=== PATIENT | female | born 1955 | race Caucasian/White ===

== ENCOUNTER → 2016-07-03 | Outpatient (CLI) | payer OTHER ==
--- NOTE | 2016-07-06 11:20 | MM ---
Reason for exam: screening (asymptomatic). Baseline mammogram. History: Patient is postmenopausal. Family history of breast cancer in grandmother, breast cancer in mother, and breast cancer in maternal grandmother. Physical Findings: Nurse did not find any significant physical abnormalities on exam. MG Screening Mammo w CAD Bilateral CC, MLO, and XCCL view(s) were taken. Prior study comparison: January 06, 2002, right breast special view mammogram. December 26, 2001, right breast diagnostic mammogram. There are scattered fibroglandular densities. Finding: There are typically benign punctate calcifications in the right breast. These results were verbally communicated with the patient and result sheet given to the patient on 07/03/16. ASSESSMENT: Probably benign, BI-RAD 3 RECOMMENDATION: Follow-up diagnostic mammogram of the right breast in 6 months.
== END | disposition home or self-care (01) ==
LOC: RADMAMWWP 09:47
PROVIDERS: ATTEND Family Medicine
DX: Z12.31 Encounter for screening mammogram for malignant neoplasm of breast (principal)

== ENCOUNTER → 2018-09-07 | Outpatient (CLI) | payer OTHER ==
--- NOTE | 2018-09-12 14:03 | MM ---
Reason for exam: screening (asymptomatic). Last mammogram was performed 2 years and 2 months ago. History: Patient is postmenopausal. Family history of breast cancer in grandmother, breast cancer in mother, and breast cancer in maternal grandmother. Physical Findings: A clinical breast exam by your physician is recommended on an annual basis and results should be correlated with mammographic findings. MG 3D Screening Mammo W/Cad Bilateral CC and MLO view(s) were taken. Prior study comparison: July 03, 2016, bilateral MG screening mammo w CAD. The breast tissue is heterogeneously dense. This may lower the sensitivity of mammography. No significant changes when compared with prior studies. ASSESSMENT: Negative, BI-RAD 1 RECOMMENDATION: Routine screening mammogram of both breasts in 1 year.
== END | disposition home or self-care (01) ==
LOC: RADMAMWWP 13:22
PROVIDERS: ATTEND Family Medicine
DX: Z12.31 Encounter for screening mammogram for malignant neoplasm of breast (principal)
CPT/HCPCS: 77063; 77067

== ENCOUNTER → 2021-08-15 | Outpatient (CLI) | payer MEDICARE, OTHER ==
--- NOTE | 2021-08-15 13:03 | CA ---
Transthoracic Echo Report Name: Nay Mesa Age: 66 Gender: F : 1955 Exam Date: 08/15/2021 11:14 Exam Location: [place] [facility] Ht (in): 61 Wt (lb): 140 Ordering Physician: Ann Marie Ramírez MD Attending/Referring Phys: Marsha Cummins [facility] Primer Boxer Petrona Newman RDCS Procedure CPT: Indications: R01.1 Holisic Murmor Cardiac Hx: Hx of murmur Technical Quality: Good Contrast 1: Total Dose (mL): Contrast 2: Total Dose (mL): MEASUREMENTS (Male / Female) Normal Values 2D ECHO LV Diastolic Diameter PLAX 2.7 cm 4.2 - 5.9 / 3.9 - 5.3 cm LV Systolic Diameter PLAX 1.0 cm IVS Diastolic Thickness 1.6 cm 0.6 - 1.0 / 0.6 - 0.9 cm LVPW Diastolic Thickness 1.5 cm 0.6 - 1.0 / 0.6 - 0.9 cm LV Relative Wall Thickness 1.2 RV Internal Dim ED PLAX 2.2 cm LVOT Diameter 1.6 cm LA Volume 32.8 cm??? 18 - 58 / 22 - 52 cm??? M-MODE Aortic Root Diameter MM 2.9 cm LA Systolic Diameter MM 3.0 cm LA Ao Ratio MM 1.0 MV E Point Septal Separation 0.4 cm AV Cusp Separation MM 1.3 cm DOPPLER AV Peak Velocity 224.0 cm/s AV Peak Gradient 20.1 mmHg AV Mean Velocity 167.4 cm/s AV Mean Gradient 12.0 mmHg AV Velocity Time Integral 44.0 cm AI Peak Velocity 240.3 cm/s AI Peak Gradient 23.1 mmHg AI Pressure Half Time 616.1 ms LVOT Peak Velocity 206.4 cm/s LVOT Peak Gradient 17.0 mmHg LVOT Velocity Time Integral 41.0 cm LVOT Stroke Volume 83.4 cm??? LVOT Stroke Volume Index 51.4 ml/m??? AV Area Cont Eq vti 1.9 cm??? AV Area Cont Eq pk 1.9 cm??? MV Peak Velocity 142.1 cm/s MV Peak Gradient 8.1 mmHg MV Mean Velocity 104.5 cm/s MV Mean Gradient 4.8 mmHg MV Velocity Time Integral 31.6 cm MV Area PHT 2.8 cm??? MR Peak Velocity 385.3 cm/s MR Peak Gradient 59.4 mmHg Mitral E Point Velocity 100.4 cm/s Mitral A Point Velocity 131.7 cm/s Mitral E to A Ratio 0.8 MV Deceleration Time 270.8 ms MV E' Velocity 5.3 cm/s Mitral E to MV E' Ratio 18.9 TR Peak Velocity 137.9 cm/s TR Peak Gradient 7.6 mmHg Right Ventricular Systolic Press 12.6 mmHg FINDINGS Left Ventricle Severely increased septal wall thickness. Moderately increased posterior wall thickness. Left ventricular ejection fraction is estimated at 55-60 %. Small left ventricular cavity. Grade 1 diastolic dysfunction. LVOT obstruction with a peak gradient of 25mmHg Right Ventricle The right ventricle is normal in size and function. Right ventricular systolic pressure within normal limits. Right Atrium The right atrium is normal in size. Left Atrium The left atrium is normal in size. Mitral Valve Structurally normal mitral valve without significant stenosis or prolapse. There is mild mitral regurgitation. Aortic Valve Mild aortic stenosis with a peak gradient of 20 mmHg and a mean gradient of 12 mmHg. . There is a trace aortic regurgitation. Diffuse thickening of the aortic valve cusps with reduced excursion. Tricuspid Valve Structurally normal tricuspid valve without significant stenosis. Pulmonary artery systolic pressure is normal. Pulmonic Valve Structurally normal pulmonic valve without significant stenosis. There is no pulmonic regurgitation. Pericardium Normal pericardium without effusion. Aorta Normal aortic root dimension. CONCLUSIONS Normal left ventricular dimension and systolic function LVOT obstruction with a peak gradient of 25 mmHg Mild aortic stenosis Previewed by: Dr. Mitchel Sun MD (Electronically Signed) Final Date: 15 Aug 2021 13:02
== END | disposition home or self-care (01) ==
LOC: RADECHMAIN 11:05
PROVIDERS: ATTEND Family Medicine
DX: I08.0 Rheumatic disorders of both mitral and aortic valves (principal); I42.1 Obstructive hypertrophic cardiomyopathy
CPT/HCPCS: 93306

== ENCOUNTER → 2021-09-01 | Outpatient (CLI) | payer MEDICARE, OTHER ==
--- NOTE | 2021-09-03 09:19 | MM ---
Reason for Exam: Screening (asymptomatic). Last mammogram was performed 3 year(s) and 0 month(s) ago. Patient History: Menarche at age 13. First Full-Term at age 21. Hysterectomy at age 46. Postmenopausal. Maternal grandmother had breast cancer. Maternal grandmother had breast cancer. Mother had breast cancer at or over age 50. Risk Values: Doreen 5 year model risk: 3.2%. NCI Lifetime model risk: 11.7%. Prior Study Comparison: 01/06/2002 Right Special View Mammogram, [facility]. 07/03/2016 Bilateral Screening Mammogram, [facility]. 09/07/2018 Bilateral Screening Mammogram, [facility]. Tissue Density: The breast tissue is heterogeneously dense. This may lower the sensitivity of mammography. Findings: Analyzed By CAD. Occasional scattered benign-appearing round calcification redemonstrated throughout both breasts. There is 8mm oval circumscribed lesion in the middle to posterior depth upper aspect right breast MLO slice 29 is not clearly seen on prior studies, possible lymph node. Overall Assessment: Incomplete: need additional imaging evaluation, BI-RAD 0 Management: Diagnostic Breast Ultrasound of the right breast. Targeted ultrasound right breast now for further workup. Electronically signed and approved by: Joshua Fuentes M.D.
== END | disposition home or self-care (01) ==
LOC: RADMAMWWP 11:47
PROVIDERS: ATTEND Family Medicine
DX: Z12.31 Encounter for screening mammogram for malignant neoplasm of breast (principal); Z78.0 Asymptomatic menopausal state; Z80.3 Family history of malignant neoplasm of breast
CPT/HCPCS: 77063; 77067

== ENCOUNTER → 2021-09-08 | Outpatient (CLI) | payer MEDICARE, OTHER ==
--- NOTE | 2021-09-08 11:05 | USB ---
Reason for Exam: Additional evaluation requested from abnormal screening. Patient History: Menarche at age 13. First Full-Term at age 21. Hysterectomy at age 46. Postmenopausal. Maternal grandmother had breast cancer. Maternal grandmother had breast cancer. Mother had breast cancer at or over age 50. Risk Values: Doreen 5 year model risk: 3.2%. NCI Lifetime model risk: 11.7%. Technique: Method: Targeted. Prior Study Comparison: 07/03/2016 Bilateral Screening Mammogram, [facility]. 09/07/2018 Bilateral Screening Mammogram, [facility]. 09/01/2021 Bilateral MG 3D screening mammo w/cad, [facility]. Findings: There is a 0.5 x 0.4 x 0.5 cm well-circumscribed anechoic area 5 cm from the nipple at the 10:00 position. This appears to correspond to the mammographic finding. Note is made of a benign-appearing lymph node in the right axilla. Overall Assessment: Probably benign, BI-RAD 3 Management: Diagnostic Mammogram of the right breast in 6 months. Diagnostic Breast Ultrasound of the right breast in 6 months. A clinical breast exam by your physician is recommended on an annual basis and results should be correlated with mammographic findings. Patient should continue monthly self breast exam. A negative mammogram or negative ultrasound should not preclude biopsy of suspicious palpable abnormalities. Electronically signed and approved by: Butch Hartman D.O. Radiologis
== END | disposition home or self-care (01) ==
LOC: RADUSWWP 10:14
PROVIDERS: ATTEND Family Medicine
DX: R92.8 Other abnormal and inconclusive findings on diagnostic imaging of breast (principal); Z78.0 Asymptomatic menopausal state; Z80.3 Family history of malignant neoplasm of breast

== ENCOUNTER → 2021-10-02 | Outpatient (CLI) | payer MEDICARE, OTHER ==
--- NOTE | 2021-10-02 09:22 | US ---
EXAMINATION TYPE: US abdomen complete DATE OF EXAM: 10/02/2021 COMPARISON: NONE CLINICAL HISTORY: R10.13 EPIGAS PAIN, R10.12 LUQ PAIN R10.11 RUQ LANNY. Pt states ABD bloating, pain x 2-3 months EXAM MEASUREMENTS: Liver Length: 15.9 cm Gallbladder Wall: 0.3 cm CBD: 0.3 cm Spleen: 6.3 cm Right Kidney: 10.4 x 4.8 x 4.8 cm Left Kidney: 10.0 x 5.2 x 5.6 cm Pancreas: wnl Liver: wnl Gallbladder: wnl Evidence for sonographic Santos's sign: No CBD: wnl Spleen: Difficult to visualize Right Kidney: wnl, lower pole gassed out Left Kidney: wnl Upper IVC: wnl Abd Aorta: wnl, distal portion gassed out Large, complex/cystic mass lower ABD= 21.2 x 11.9 x 18.1 cm ?etiology- possibly ovarian? The liver is homogenous. The intrahepatic portion of the IVC and proximal abdominal aorta are within normal limits. There is no evidence of cholelithiasis. Common bile duct is unremarkable. The visu alized portions of the pancreas are homogenous. Kidneys are symmetric and free of hydronephrosis. N o renal lesions are seen. IMPRESSION: 1. Large complex partially cystic mass which may arise from the ovary. CT of the abdomen and pelvis i s recommended for further evaluation to exclude neoplasm.
== END | disposition home or self-care (01) ==
LOC: RADUSWWP 08:38
PROVIDERS: ATTEND Family Medicine
DX: R19.09 Other intra-abdominal and pelvic swelling, mass and lump (principal)
CPT/HCPCS: 76700

== ENCOUNTER → 2021-10-03 | Outpatient (CLI) | payer MEDICARE, OTHER ==
--- NOTE | 2021-10-03 12:53 | BD ---
EXAMINATION TYPE: Axial Bone Density DATE OF EXAM: 10/03/2021 COMPARISON: NONE CLINICAL HISTORY: 66 years year old Female. ICD-10 CODE: G89.29 CHRONIC PAIN, Z78.0 POST MENOPAUSAL, M54.41 Lumbago w Height: 61 Weight: 138.1 FRAX RISK QUESTIONS: Alcohol (3 or more units per day): yes Family History (Parent hip fracture): no Glucocorticoids (More than 3mos): no (Ex: prednisone, prednisolone, methylprednisolone, dexamethasone, and hydrocortisone). History of Fracture in Adulthood: no Secondary Osteoporosis: 1. Type 1 Diabetes: no 2. Hyperthyroidism: no 3. Menopause before 45: no 4. Malnutrition: no 5. Chronic liver disease: no Rheumatoid Arthritis: no Current Tobacco Use: yes RISK FACTORS HISTORY OF: Surgery to Spine/Hip(right/left)/Wrist (right/left): no Family History of Osteoporosis: no Active: yes Diet low in dairy products/other sources of calcium: yes Postmenopausal woman: yes Lost more than 2 inches in height since high school: no MEDICATIONS: Additional History: EXAM MEASUREMENTS: Bone mineral densitometry was performed using the Uni-Pixel System. Bone mineral density as measured about the Lumbar spine is: ----- L1-L4(G/cm2): 0.935 T Score Values are as follows: ----- L1: -2.2 ----- L2: -2.8 ----- L3: -2.2 ----- L4: -1.3 ----- L1-L4: -2.0 Bone mineral density baseline Bone mineral density about the R hip (g/cm2): 0.752 Bone mineral density about the L hip (g/cm2): 0.755 T Score values are as follows: -----R Neck: -2.1 -----L Neck: -2.0 -----R Total: -1.6 -----L Total: -1.6 Bone mineral density : baseline FRAX%s: The graph provided illustrates a 14.4% chance for a major osteoporotic fx and a 4.5% chance f or the hips probability for fx in 10 years time. IMPRESSION: Osteopenia (T Score between -2.5 and -1). There is slightly increased risk of fracture and the patient may be considered for treatment. Re-Screen 2-5 years. NOTE: T-SCORE=SD OF THE YOUNG ADULT MEAN.
== END | disposition home or self-care (01) ==
LOC: RADBDWWP 11:07
PROVIDERS: ATTEND Family Medicine
DX: M81.0 Age-related osteoporosis without current pathological fracture (principal); Z78.0 Asymptomatic menopausal state
CPT/HCPCS: 77080

== ENCOUNTER → 2021-10-15 | Outpatient (CLI) | payer MEDICARE, OTHER ==
[2021-10-15 19:00] LABS: African American GFR (CKD) >90 (>60 ml/min/1.73 sqM); Blood Urea Nitrogen 10 mg/dL (7-17); Non-African American GFR(CKD) >90 (>60 ml/min/1.73 sqM)
--- NOTE | 2021-10-15 20:55 | CT ---
EXAMINATION TYPE: CT abdomen pelvis w con CT DLP: 624.7 mGycm, Automated exposure control for dose reduction was used. DATE OF EXAM: 10/15/2021 7:55 PM COMPARISON: None CLINICAL INDICATION:Female, 66 years old with history of R19.03; abd swelling x 6 months TECHNIQUE: Axial CT of the abdomen and pelvis. Sagittal and coronal reformats were created on a [employer] workstation. Contrast used:100ml mL of Isovue 300 with IV Contrast, Oral contrast used: with Oral Contrast FINDINGS: LOWER CHEST: Unremarkable ABDOMEN LIVER: Diffusely hypoattenuating parenchyma. GALLBLADDER AND BILE DUCTS: Unremarkable. PANCREAS: Unremarkable. SPLEEN: Unremarkable. ADRENAL GLANDS: Unremarkable. KIDNEYS AND URETERS: No evidence of hydronephrosis or renal calculus. The ureters are unremarkable. PELVIS BLADDER: Unremarkable REPRODUCTIVE: There is a large multiloculated cystic structure emanating from the pelvis and possibly the right ovary. Overall measures 21.9 x 13.4 x 16.2 cm. Multiple septations mostly thinner apprecia sheron. Uterus is not definitively visualized may be surgically absent. ABDOMEN & PELVIS STOMACH AND BOWEL: No evidence of bowel obstruction. Few colonic diverticula are present. Small hiata l hernia present. PERITONEUM: No evidence of pneumoperitoneum or free fluid. VASCULATURE: No evidence of aortic aneurysm. MUSCULOSKELETAL: No acute osseous abnormalities LYMPH NODES: No gross evidence for lymphadenopathy. SOFT TISSUE/ABDOMINAL WALL: Unremarkable IMPRESSION: 1. Large intra-abdominal cystic neoplasm to thought to be arising from the right ovary measuring up to 21.9 cm. Nuclear Pharmacist-Onc consultation is recommended. Differential is broad including benign and malignant etiologies. 2. Hepatic steatosis. 3. Small hiatal hernia. 4. Colonic diverticulosis.
== END | disposition home or self-care (01) ==
LOC: RADCTMAIN 15:54
PROVIDERS: ATTEND Family Medicine
DX: R19.03 Right lower quadrant abdominal swelling, mass and lump (principal); K76.0 Fatty (change of) liver, not elsewhere classified; K44.9 Diaphragmatic hernia without obstruction or gangrene; K57.30 Diverticulosis of large intestine without perforation or abscess without bleeding
CPT/HCPCS: 82565; 84520; 74177; 36415; Q9967

== ENCOUNTER → 2022-03-27 | Outpatient (CLI) | payer MEDICARE, OTHER ==
--- NOTE | 2022-03-27 10:03 | MM ---
Reason for Exam: Follow-up at short interval from prior study. Last screening mammogram was performed 7 month(s) ago. Patient History: Menarche at age 13. First Full-Term at age 21. Left ovary removed at age 66. Right ovary removed at age 66. Hysterectomy at age 46. Postmenopausal. Ovarian cancer, age 66. Previous chemotherapy at age 66. Maternal grandmother had breast cancer under age 50. Maternal grandmother had breast cancer at or over age 50. Mother had breast cancer at or over age 50. Risk Values: Doreen 5 year model risk: 3.2%. NCI Lifetime model risk: 11.7%. Prior Study Comparison: 07/03/2016 Bilateral Screening Mammogram, [facility]. 09/07/2018 Bilateral Screening Mammogram, [facility]. 09/01/2021 Bilateral MG 3D screening mammo w/cad, [facility]. Tissue Density: Right: The breast tissue is heterogeneously dense. This may lower the sensitivity of mammography. Findings: Analyzed By CAD. No new suspicious mass within either breast. Benign round calcifications within both breasts. Decreased size of likely lymph node within the upper right breast on the MLO view measuring 3 mm short axis, previously 4 mm. Overall Assessment: Incomplete: need additional imaging evaluation, BI-RAD 0 Management: Diagnostic Breast Ultrasound of the right breast. A clinical breast exam by your physician is recommended on an annual basis and results should be correlated with mammographic findings. This exam should not preclude additional follow-up of suspicious palpable abnormalities. Results were given to the patient verbally at the time of exam. Electronically signed and approved by: Federico Chavira D.O.
--- NOTE | 2022-03-27 10:22 | USB ---
Reason for Exam: Follow-up at short interval from prior study. Patient History: Menarche at age 13. First Full-Term at age 21. Left ovary removed at age 66. Right ovary removed at age 66. Hysterectomy at age 46. Postmenopausal. Ovarian cancer, age 66. Previous chemotherapy at age 66. Maternal grandmother had breast cancer under age 50. Maternal grandmother had breast cancer at or over age 50. Mother had breast cancer at or over age 50. Risk Values: Doreen 5 year model risk: 3.2%. NCI Lifetime model risk: 11.7%. Technique: Method: Targeted. Prior Study Comparison: 07/03/2016 Bilateral Screening Mammogram, [facility]. 09/07/2018 Bilateral Screening Mammogram, [facility]. 09/01/2021 Bilateral MG 3D screening mammo w/cad, [facility]. Findings: The upper outer quadrant of the right breast, the axilla of the right breast and the retroareolar of the right breast were scanned. Targeted ultrasound of the right breast from 9-11 o'clock was performed. Additional evaluation of the nipple and x-ray tail was performed. Previously seen cystic lesion at 10:00 within the right breast is not visualized on today's exam. No visualized new solid or cystic lesions.Targeted ultrasound of the right breast from 9-11 o'clock was performed. Additional evaluation of the nipple and axillary tail was performed. Previously seen cystic lesion at 10:00 within the right breast is not visualized on today's exam. No visualized new solid or cystic lesions. Overall Assessment: Benign, BI-RAD 2 Management: Screening Mammogram of both breasts in 5 months. A clinical breast exam by your physician is recommended on an annual basis and results should be correlated with mammographic findings. This exam should not preclude additional follow-up of suspicious palpable abnormalities. Results were given to the patient verbally at the time of exam. Electronically signed and approved by: Federico Chavira D.O.
== END | disposition home or self-care (01) ==
LOC: RADMAMWWP 09:26
PROVIDERS: ATTEND Family Medicine
DX: R92.8 Other abnormal and inconclusive findings on diagnostic imaging of breast (principal); Z78.0 Asymptomatic menopausal state; Z80.3 Family history of malignant neoplasm of breast; Z90.721 Acquired absence of ovaries, unilateral
CPT/HCPCS: 77065; 76642; G0279; 77061

== ENCOUNTER → 2022-07-11 | Outpatient (CLI) | payer MEDICARE, OTHER ==
--- NOTE | 2022-07-12 12:55 | PE ---
EXAMINATION TYPE: PET CT fusion skull to thigh DATE OF EXAM: 07/11/2022 CLINICAL INDICATION:Female, 67 years old with history of C56.3; TECHNIQUE: Following the intravenous administration of 13.5 mCi of F-18 FDG, whole body images are performed from the skull base to the midthigh. Images are reviewed on the computer in the coronal, a xial, and sagittal planes. Reconstructed rotating images are created on independent workstation and reviewed on the computer. A non-contrast CT is performed in conjunction with the PET scan. Glucose level 106 mg/dL COMPARISON: CT 10/15/2021, PET/CT None, FINDINGS: Mediastinal SUV mean is 1.4. Hepatic parenchyma SUV mean is 2.0. SKULL BASE AND NECK: No suspicious radiotracer activity. CHEST, MEDIASTINUM, AND HILAR REGION: No suspicious radiotracer activity. ABDOMEN AND PELVIS: Thin peripheral FDG activity near the right hepatic lobe anteriorly max SUV 5.7 corresponding with so ft tissue nodularity on CT imaging. Trace fluid is suspected in this region. Findings best appreciate d on series 3 image 149, soft tissue density within the omentum in the left abdomen Max SUV 1.2 measu ring 9 mm. Additional scattered smaller soft tissue densities are seen throughout the omentum which a re new from prior CT in September 2021. The large cystic neoplasm has been removed. OSSEOUS STRUCTURES: No suspicious radiotracer activity. OTHER CT: Atherosclerosis of the arterial vasculature including the coronary arteries. Scattered pulm onary nodules measuring less than 3 mm. Fat containing umbilical hernia. Scattered colonic diverticul osis. Trace free fluid within the pelvis. Left adrenal nodular thickening. Interval removal of large cystic neoplasm. IMPRESSION: 1. New Suspected omental caking throughout the mesentery with FDG activity within the fat anterior t o the right hepatic lobe with scattered soft tissue nodules on CT imaging throughout the omentum whic h are new from prior. Findings compatible with omental caking/ metastatic disease. 2. Scattered sub-4 mm pulmonary nodules which are below the sensitivity for PET/CT. Consider follow- up chest 3-6 months to confirm stability.
== END | disposition home or self-care (01) ==
LOC: RADPETMAIN 07:22
PROVIDERS: ATTEND Obstetrics & Gynecology
DX: C56.3 Malignant neoplasm of bilateral ovaries (principal); R91.8 Other nonspecific abnormal finding of lung field
CPT/HCPCS: 78815; A9552

== ENCOUNTER → 2022-09-03 | Outpatient (CLI) | payer MEDICARE, OTHER ==
--- NOTE | 2022-09-04 08:36 | CA ---
Transthoracic Echo Report Name: Nay Mesa Age: 67 Gender: F : 1955 Exam Date: 09/03/2022 10:07 Exam Location: [place] [facility] Ht (in): 61 Wt (lb): 135 Ordering Physician: Bernard Tomlinson MD Attending/Referring Phys: Squeezer Operator Joana Castillo RDCS Procedure CPT: Indications: Z01.818 Encounter for other preprocedural exam Cardiac Hx: Technical Quality: Fair Contrast 1: Total Dose (mL): Contrast 2: Total Dose (mL): MEASUREMENTS (Male / Female) Normal Values 2D ECHO LV Diastolic Diameter PLAX 3.0 cm 4.2 - 5.9 / 3.9 - 5.3 cm LV Systolic Diameter PLAX 2.1 cm IVS Diastolic Thickness 1.6 cm 0.6 - 1.0 / 0.6 - 0.9 cm LVPW Diastolic Thickness 1.6 cm 0.6 - 1.0 / 0.6 - 0.9 cm LV Relative Wall Thickness 1.1 RV Internal Dim ED PLAX 2.2 cm LA Volume 53.2 cm??? 18 - 58 / 22 - 52 cm??? M-MODE Aortic Root Diameter MM 3.1 cm LA Systolic Diameter MM 2.6 cm LA Ao Ratio MM 0.9 AV Cusp Separation MM 1.6 cm DOPPLER AV Peak Velocity 200.5 cm/s AV Peak Gradient 16.1 mmHg AV Mean Velocity 137.4 cm/s AV Mean Gradient 8.1 mmHg AV Velocity Time Integral 35.5 cm LVOT Peak Velocity 154.6 cm/s LVOT Peak Gradient 9.6 mmHg LVOT Velocity Time Integral 34.4 cm MV Area PHT 5.1 cm??? Mitral E Point Velocity 79.3 cm/s Mitral A Point Velocity 135.4 cm/s Mitral E to A Ratio 0.6 MV Deceleration Time 147.8 ms MV E' Velocity 4.7 cm/s Mitral E to MV E' Ratio 16.7 TR Peak Velocity 254.1 cm/s TR Peak Gradient 25.8 mmHg Right Ventricular Systolic Press 29.4 mmHg FINDINGS Left Ventricle Moderately increased left ventricular wall thickness. Normal left ventricular systolic function with no obvious regional wall motion abnormalities. Left ventricular cavity size normal. Left ventricular ejection fraction is estimated at 55-60 %. Right Ventricle Normal right ventricular size and function. Right ventricular systolic pressure within normal limits. Right Atrium Normal right atrial size. Left Atrium Mildly increased left atrial volume. Mitral Valve Structurally normal mitral valve. Mitral valve thickened. Mild mitral annular calcification. Mild mitral regurgitation. Aortic Valve Trileaflet aortic valve. Diffuse thickening (sclerosis) of the aortic valve cusps without reduced excursion. No aortic regurgitation. Tricuspid Valve Structurally normal tricuspid valve. Mild tricuspid regurgitation. Pulmonic Valve Structurally normal pulmonic valve. Trace pulmonic regurgitation. Pericardium No pericardial effusion. Echo free space anterior to the right ventricle likely represents a fat pad. Aorta Normal size aortic root and proximal ascending aorta. CONCLUSIONS 1. Normal left ventricle size and systolic function 2. Mild mitral and tricuspid regurgitation 3. Aortic sclerosis with no evidence of stenosis Previewed by: Dr. Pricilla Medel MD (Electronically Signed) Final Date: 04 September 2022 08:35
== END | disposition home or self-care (01) ==
LOC: RADECHMAIN 09:41
PROVIDERS: ATTEND Internal Medicine Hematology & Oncology
DX: Z01.818 Encounter for other preprocedural examination (principal); I08.3 Combined rheumatic disorders of mitral, aortic and tricuspid valves
CPT/HCPCS: 93306

== ENCOUNTER 2022-10-16 07:59 | Day surgery (SDC) | payer MEDICARE, OTHER ==
[2022-10-16 08:44] VITALS: RESP 16; TEMP 98.5
[2022-10-16 09:01] LABS: Mean Platelet Volume 8.1; Platelet Count 584 k/uL (150-450)
[2022-10-16 09:19] LABS: ALT 11 U/L (4-34); AST 16 U/L (14-36); African American GFR (CKD) >90 (>60 ml/min/1.73 sqM); Albumin 3.5 g/dL (3.5-5.0); Alkaline Phosphatase 103 U/L (38-126); Anion Gap 7 mmol/L; Blood Urea Nitrogen 7 mg/dL (7-17); Calcium 9.5 mg/dL (8.4-10.2); Carbon Dioxide 29 mmol/L (22-30); Chloride 101 mmol/L (98-107); Glucose 114 mg/dL (74-99); Non-African American GFR(CKD) >90 (>60 ml/min/1.73 sqM); Potassium 4.1 mmol/L (3.5-5.1); Sodium 137 mmol/L (137-145); Total Bilirubin 0.3 mg/dL (0.2-1.3); Total Protein 6.9 g/dL (6.3-8.2)
[2022-10-16 09:20] LABS: INR 1.1 (<1.2); Prothrombin Time 11.1 sec (9.0-12.0)
[2022-10-16 10:27] VITALS: BP 122/81; PULSE 106
[2022-10-16 10:36] LABS: C Reactive Protein 6.7 mg/dL (<1.0)
--- NOTE | 2022-10-16 10:52 | US ---
EXAMINATION TYPE: US paracentesis abd w/image DATE OF EXAM: 10/16/2022 CLINICAL HISTORY: 67 year-old female R18.8, ascites, history of ovarian cancer. Abdominal pain and d istention. Referred for first paracentesis. The procedure was discussed with the patient. The risks, complications, benefits, and alternatives we re discussed and any questions were answered. Informed consent was obtained. The patient was placed s upine on the ultrasound table and prepped and draped in the usual sterile fashion. All elements of maximal barrier technique were utilized. Ultrasound was utilized to determine the precise skin entry site along the right lower quadrant. A 6 Turkish safety T[employer]ie ([employer]esis catheter system was utilized to obtain access into the ascites collection. Loc al anesthesia with 1% lidocaine was utilized prior to catheter insertion. Approximately 1.0 liters of clear, straw-colored fluid was removed. The patient was stable throughout the procedure and remained stable upon discharge from Department of Radiology. Catheter was removed, hemostasis obtained, and a bandage placed. IMPRESSION: Successful therapeutic paracentesis under ultrasound guidance. 1 L of ascites fluid removed. The abdo men is rescanned following paracentesis and only trace fluid remains.
[2022-10-17 03:07] LABS: Rheumatoid Factor, Qnt <15 IU/mL (0-15)
[2022-10-23 15:22] LABS: ANA Pattern SPK
== END 2022-10-16 10:40 | disposition home or self-care (01) ==
LOC: RADPROMAIN 07:59
PROVIDERS: ATTEND Internal Medicine Hematology & Oncology
DX: R18.8 Other ascites (principal); R14.0 Abdominal distension (gaseous); Z85.43 Personal history of malignant neoplasm of ovary; Z79.82 Long term (current) use of aspirin; Z90.89 Acquired absence of other organs; Z90.710 Acquired absence of both cervix and uterus; Z79.899 Other long term (current) drug therapy
CPT/HCPCS: 80053; 85652; 84443; 85049; 85610; 86140; 86431; 83721; 82306; 86038; 86039; 83036; 49083; J1642

== ENCOUNTER 2022-11-27 12:54 | Day surgery (SDC) | payer MEDICARE, OTHER ==
[2022-11-27 13:39] VITALS: TEMP 98.1
[2022-11-27 13:44] LABS: Mean Platelet Volume 7.7; Platelet Count 664 k/uL (150-450)
[2022-11-27 13:53] LABS: Prothrombin Time 10.2 sec (9.0-12.0)
[2022-11-27 13:58] LABS: African American GFR (CKD) >90 (>60 ml/min/1.73 sqM); Non-African American GFR(CKD) >90 (>60 ml/min/1.73 sqM)
[2022-11-27 15:13] VITALS: RESP 16
[2022-11-27 15:58] VITALS: BP 121/79; PULSE 115
--- NOTE | 2022-12-02 12:11 | US ---
EXAMINATION TYPE: US paracentesis abd w/image DATE OF EXAM: 11/27/2022 2:44 PM CLINICAL INDICATION:Female, 67 years old with history of R18.8; COMPARISON: 10/08/2022 ATTENDING: Dr. Bear Castanon PROCEDURE: Informed consent was obtained. The risks of the procedure were extensively explained incl uding risk of damage to surrounding bowel with perforation and need for additional procedures. Proced ure was performed in the ultrasound procedure suite. Ultrasound imaging of the abdomen demonstrate as citic fluid. An appropriate access site was localized to the right lower abdomen. Timeout was taken p er protocol. The skin was prepped and draped in the usual sterile fashion and then locally anesthetiz ed with 1% lidocaine. The peritoneal cavity was then accessed via a 5-[place] one-step needle/cathete r. Approximately 3950 cc of clear straw-colored fluid was obtained. Postprocedural imaging of the a bdomen demonstrate a minimal amount of abdominal fluid. Patient tolerated procedure well without immediate complication. Hemostasis at the procedural site w as obtained with a sterile bandage placed. The patient was monitored in the holding area following th e procedure and was subsequently discharged in stable condition. IMPRESSION: Ultrasound guided paracentesis, with approximately 3950 cc of clear straw-colored fluid drained. No i mmediate complications were evident.
== END 2022-11-27 15:45 | disposition home or self-care (01) ==
LOC: RADPROMAIN 12:54
PROVIDERS: ATTEND Internal Medicine Hematology & Oncology
DX: R18.8 Other ascites (principal)
CPT/HCPCS: 82565; 85049; 85610; 49083; J1642

== ENCOUNTER 2022-12-20 00:02 | Inpatient (IN) | payer MEDICARE, OTHER ==
[2022-12-20 01:06] LABS: Anisocytosis Slight; Basophils % (A) 0 %; Eosinophils % (A) 0 %; HCT 32.2 % (34.0-46.0); HGB 10.1 gm/dL (11.4-16.0); Hypochromasia Marked; Lymphocytes # (A) 2.4 k/uL (1.0-4.8); Lymphocytes % (A) 19 %; MCHC 31.3 g/dL (31.0-37.0); Mean Platelet Volume 8.4; Monocytes # (A) 0.9 k/uL (0-1.0); Monocytes % (A) 7 %; Neutrophils # (A) 9.5 k/uL (1.3-7.7); Neutrophils % (A) 73 %; Platelet Count 574 k/uL (150-450); RBC 3.87 m/uL (3.80-5.40); RDW 17.4 % (11.5-15.5); WBC 13.1 k/uL (3.8-10.6)
[2022-12-20 01:07] LABS: MCV 83.1 fL (80.0-100.0)
[2022-12-20] MEDS ORDERED: MORPHINE SULFATE 4 MG/ML SYRINGE IV STA (01:12)
[2022-12-20] MEDS ORDERED: ONDANSETRON 4 MG/2 ML VIAL IVP STA ×2 (01:12→04:35)
[2022-12-20] MEDS ORDERED: SODIUM CHLORIDE 0.9% 500 ML 500 ML IV STA (01:12)
[2022-12-20 01:17] LABS: Partial Thromboplastin Time 23.3 sec (22.0-30.0); Prothrombin Time 10.6 sec (9.0-12.0)
[2022-12-20 01:22] LABS: ALT 14 U/L (4-34); AST 26 U/L (14-36); African American GFR (CKD) 75 (>60 ml/min/1.73 sqM); Albumin 3.2 g/dL (3.5-5.0); Alkaline Phosphatase 104 U/L (38-126); Anion Gap 17 mmol/L; Blood Urea Nitrogen 33 mg/dL (7-17); Calcium 9.8 mg/dL (8.4-10.2); Carbon Dioxide 29 mmol/L (22-30); Chloride 82 mmol/L (98-107); Glucose 106 mg/dL (74-99); Non-African American GFR(CKD) 65 (>60 ml/min/1.73 sqM); Sodium 128 mmol/L (137-145); Total Bilirubin 0.8 mg/dL (0.2-1.3); Total Protein 6.6 g/dL (6.3-8.2)
--- NOTE | 2022-12-20 02:22 | ED ---
Altered Mental Status HPI - General Chief Complaint: Altered Mental Status Stated Complaint: WEAKNESS Time Seen by Provider: 12/20/22 00:15 Source: EMS Mode of arrival: EMS Limitations: altered mental status - History of Present Illness Initial Comments: This patient is 67-year-old woman with history of metastatic ovarian cancer who is here to have evaluation for changes in her mental status. The patient reportedly was receiving chemotherapy but states that it was "too strong for her, so it was stopped" over the past couple of weeks she has been taking less and less oral intake. She has not really had much in way of fluids for the past few days. Tonight she was becoming somewhat confused and disoriented so he brought her to have evaluation here. In addition, the patient has not been taking her home analgesics. MD Complaint: altered mental status -: days(s) Severity: moderate Consistency of Symptoms: getting worse Context: cancer Associated Symptoms: nausea/vomiting - Related Data Home Medications Medication Instructions Recorded Confirmed HYDROcodone/APAP 10-325MG [[place] 1 tab PO BID 12/20/22 12/20/22 10-325] HYDROcodone/APAP 10-325MG [[place] 1 tab PO BID PRN 12/20/22 12/20/22 10-325] Allergies Allergy/AdvReac Type Severity Reaction Status Date / Time No Known Allergies Allergy Verified 12/20/22 13:09 Review of Systems ROS Statement: Those systems with pertinent positive or pertinent negative responses have been documented in the HPI. ROS Other: All systems not noted in ROS Statement are negative. Constitutional: Reports: weakness. Denies: fever, chills Eyes: Denies: vision change ENT: Denies: congestion Cardiovascular: Denies: chest pain, palpitations, edema, syncope Gastrointestinal: Reports: nausea, vomiting. Denies: abdominal pain, diarrhea, constipation, hematemesis, melena, hematochezia Genitourinary: Denies: dysuria, hematuria Musculoskeletal: Denies: back pain Skin: Denies: rash Neurological: Reports: confusion. Denies: headache, weakness, numbness Past Medical History Past Medical History: Cancer, Osteoarthritis (OA) Additional Past Medical History / Comment(s): OVARIAN CANCER.HEART MURMUR. History of Any Multi-Drug Resistant Organisms: None Reported Past Surgical History: Adenoidectomy, Section, Hernia Repair, Tonsillectomy Additional Past Surgical History / Comment(s): CARPAL TUNNEL RIGHT HAND. PARTIAL HYSTERECTOMY WITH EXPLORATORY LAP 27 years ago. oviarian mass removal nov 2021- postive for CA. port placement Past Anesthesia/Blood Transfusion Reactions: No Reported Reaction Past Psychological History: No Psychological Hx Reported Smoking Status: Current every day smoker Past Alcohol Use History: None Reported Past Drug Use History: None Reported - Past Family History Mother Family Medical History: Cancer Additional Family Medical History / Comment(s): breast General Exam Limitations: altered mental status General appearance: alert, in no apparent distress Head exam: Present: atraumatic, normocephalic Eye exam: Present: normal appearance, PERRL, EOMI. Absent: scleral icterus, conjunctival injection ENT exam: Present: mucous membranes dry Neck exam: Present: normal inspection, full ROM. Absent: tenderness, meningismus Respiratory exam: Present: respiratory distress (Mild tachypnea), rhonchi. Ab sent: wheezes, rales, stridor Cardiovascular Exam: Present: normal rhythm, tachycardia, normal heart sounds. Absent: systolic murmur, diastolic murmur, rubs, gallop GI/Abdominal exam: Present: distended. Absent: tenderness, guarding, rebound, rigid, mass, pulsatile mass, hernia Extremities exam: Present: normal inspection, normal capillary refill. Absent: pedal edema, calf tenderness Back exam: Present: normal inspection. Absent: CVA tenderness (R), CVA tenderness (L) Neurological exam: Present: alert, CN II-XII intact. Absent: motor sensory deficit Skin exam: Present: warm, dry, intact, normal color. Absent: rash Course Vital Signs 12/20/22 12/20/22 12/20/22 00:06 02:09 06:00 Temperature 97.8 F Pulse Rate 122 H 116 H 112 H Pulse Rate [ It Audit Manager ] Pulse Rate [ Pulse Oximetery ] Respiratory 26 H 20 19 Rate Blood Pressure 96/73 107/59 98/78 Blood Pressure [Left Arm Supine] Blood Pressure [Right Arm] O2 Sat by Pulse 99 99 99 Oximetry 12/20/22 12/20/22 12/20/22 07:25 08:01 12:00 Temperature 97.9 F Pulse Rate 112 H 112 H Pulse Rate [ 107 H It Audit Manager ] Pulse Rate [ Pulse Oximetery ] Respiratory 17 17 18 Rate Blood Pressure 133/80 102/65 Blood Pressure [Left Arm Supine] Blood Pressure 103/79 [Right Arm] O2 Sat by Pulse 95 96 93 L Oximetry 12/20/22 12/20/22 12/20/22 16:00 20:00 21:30 Temperature 98.5 F Pulse Rate Pulse Rate [ 91 106 H 106 H It Audit Manager ] Pulse Rate [ Pulse Oximetery ] Respiratory 18 16 16 Rate Blood Pressure Blood Pressure 118/81 [Left Arm Supine] Blood Pressure 109/72 [Right Arm] O2 Sat by Pulse 95 98 Oximetry 12/21/22 12/21/22 12/21/22 01:25 02:00 03:59 Temperature Pulse Rate Pulse Rate [ 107 H 107 H It Audit Manager ] Pulse Rate [ Pulse Oximetery ] Respiratory 14 14 Rate Blood Pressure Blood Pressure 117/80 [Left Arm Supine] Blood Pressure [Right Arm] O2 Sat by Pulse 97 97 Oximetry 12/21/22 12/21/22 12/21/22 06:00 08:00 16:00 Temperature 98.4 F 98.6 F 98.3 F Pulse Rate Pulse Rate [ 106 H 104 H 114 H It Audit Manager ] Pulse Rate [ Pulse Oximetery ] Respiratory 16 18 16 Rate Blood Pressure Blood Pressure 114/79 102/76 [Left Arm Supine] Blood Pressure 116/75 [Right Arm] O2 Sat by Pulse 97 97 97 Oximetry 12/21/22 17:43 Temperature 97.5 F L Pulse Rate Pulse Rate [ It Audit Manager ] Pulse Rate [ 90 Pulse Oximetery ] Respiratory 16 Rate Blood Pressure Blood Pressure 111/76 [Left Arm Supine] Blood Pressure [Right Arm] O2 Sat by Pulse 99 Oximetry Procedures - Sepsis Sepsis Focused Exam #1 Sepsis Focused Exam Complete: Yes Vital Signs & RN Notes Reviewed: Yes Capillary Refill: < 2 Seconds: Fingers Peripheral Pulses: Normal: Radial (L) Skin Color: Normal for Patient Respiratory Exam: normal lung sounds Cardiovascular Exam: normal rhythm, tachycardia, normal heart sounds Medical Decision Making - Medical Decision Making Patient is 67-year-old woman with altered mental status, which has developed after she had days of poor oral intake. On the exam, there is dehydration. There is scattered rhonchi on the lung exam but no areas of definite consolidation. Patient's abdominal exam suggestive of reaccumulation of ascites that previously been drained. I light of these patient be admitted to rule out pneumonia. Hydration is started. Will have consultation with Dr. Tomlinson to decide whether her ascites needs to be drained again. The patient had chest x-ray which I interpreted as showing possible small left lower infiltrate. After reviewing the x-ray, patient meets sepsis criteria, at a approximately 3:30 AM, antibiotics, fluids ordered. Was pt. sent in by a medical professional or institution (LIZET Mensah, HAND FRAME SURGICAL ELASTIC KNITTER, urgent care, hospital, or longterm...) When possible be specific @ -[No] Did you speak to anyone other than the patient for history (EMS, parent, family, police, friend...)? What history was obtained from this source @ -[Patient's did get most of the history Did you review nursing and triage notes (agree or disagree)? Why? @ -[I reviewed and agree with nursing and triage notes] Were old charts reviewed (outside hosp., previous admission, EMS record, old EKG, old radiological studies, urgent care reports/EKG's, longterm records)? Report findings @ -[No old charts were reviewed] Differential Diagnosis (chest pain, altered mental status, abdominal pain women, abdominal pain men, vaginal bleeding, weakness, fever, dyspnea, syncope, headache, dizziness, GI bleed, back pain, seizure, CVA, palpatations, mental health, musculoskeletal)? Differential Altered Mental Status: Hypoglycemia, DKA, hypercapnia, ETOH, overdose, CO poisoning, trauma, myxedema coma, HTN encephalopathy, infection, encephalitis, psychosis, intercranial hemorrhage, hepatic encephalopathy, meningitis, CVA, this is not meant to be an all-inclusive list EKG interpreted by me (3pts min.). @ -[ X-rays interpreted by me (1pt min.). @ -[I interpreted as above CT interpreted by me (1pt min.). @ -[None done] U/S interpreted by me (1pt. min.). @ -[None done] What testing was considered but not performed or refused? (CT, X-rays, U/S, l abs)? Why? @ -[None] What meds were considered but not given or refused? Why? @ -[None] Did you discuss the management of the patient with other professionals (professionals i.e. LIZET Mensah, HAND FRAME SURGICAL ELASTIC KNITTER, lab, RT, psych nurse, social and political studies professor, coding compliance auditor, teacher, police liaison officer, piano case and bench assembler)? Give summary @ -[Case is discussed with the admitting physician and treatment recommendations are incorporated Was smoking cessation discussed for >3mins.? @ -[No] Was critical care preformed (if so, how long)? @ -[No] Were there social determinants of health that impacted care today? How? (Homelessness, low income, unemployed, alcoholism, drug addiction, transportation, low edu. Level, literacy, decrease access to med. care, correction, rehab)? @ -[No] Was there de-escalation of care discussed even if they declined (Discuss DNR or withdrawal of care, Hospice)? DNR status @ -[No] What co-morbidities impacted this encounter? (DM, HTN, Smoking, COPD, CAD, C ancer, CVA, ARF, Chemo, Hep., AIDS, mental health diagnosis, sleep apnea, morbid obesity)? @ -[None] Was patient admitted / discharged? Hospital course, mention meds given and route, prescriptions, significant lab abnormalities, going to OR and other pertinent info. @ -[This patient is a 67-year-old woman with metastatic cancer. The patient brought in for altered mental status and had reportedly not been taking much oral intake. During workup, I interpreted her chest x-ray showing possible pneumonia and patient then met the sepsis criteria. See above. Patient admitted to have further evaluation and treatment including oncology con sultation. At admission no evidence of bacterial peritonitis. Undiagnosed new problem with uncertain prognosis? @ -[No] Drug Therapy requiring intensive monitoring for toxicity (Heparin, Nitro, Insulin, Cardizem)? @ -[No] Were any procedures done? @ -[No] Diagnosis/symptom? @ -[Acute altered mental status Acute on chronic abdominal ascites Possible left lower lobe pneumonia Acute hypotension and tachycardia Possible sepsis hyponatremia Elevated troponin I Acute, or Chronic, or Acute on Chronic? @ -[default] Uncomplicated (without systemic symptoms) or Complicated (systemic symptoms)? @ -[Complicate by mouth status change Side effects of treatment? @ -[No] Exacerbation, Progression, or Severe Exacerbation? @ -[No] Poses a threat to life or bodily function? How? (Chest pain, [place], SD, pneumonia, PE, COPD, DKA, ARF, appy, cholecystitis, CVA, Diverticulitis, Homicidal, Suicidal, threat to staff... and all critical care pts) @ -[Yes, worsening dehydration or sepsis may lead to further hypotension, oriented failure, - Lab Data Result diagrams: 12/25/22 06:01 12/25/22 06:01 Lab Results 12/20/22 12/20/22 12/20/22 Range/Units 00:11 00:11 00:11 WBC 13.1 H (3.8-10.6) k/uL RBC 3.87 (3.80-5.40) m/uL Hgb 10.1 L (11.4-16.0) gm/dL Hct 32.2 L (34.0-46.0) % MCV 83.1 D (80.0-100.0) fL MCH 26.0 (25.0-35.0) pg MCHC 31.3 (31.0-37.0) g/dL RDW 17.4 H (11.5-15.5) % Plt Count 574 H (150-450) k/uL MPV 8.4 Neutrophils % 73 % Lymphocytes % 19 % Monocytes % 7 % Eosinophils % 0 % Basophils % 0 % Neutrophils # 9.5 H (1.3-7.7) k/uL Lymphocytes # 2.4 (1.0-4.8) k/uL Monocytes # 0.9 (0-1.0) k/uL Eosinophils # 0.0 (0-0.7) k/uL Basophils # 0.0 (0-0.2) k/uL Hypochromasia Marked Anisocytosis Slight PT 10.6 (9.0-12.0) sec INR 1.0 (<1.2) APTT 23.3 (22.0-30.0) sec Sodium 128 L (137-145) mmol/L Potassium 3.5 (3.5-5.1) mmol/L Chloride 82 L (98-107) mmol/L Carbon Dioxide 29 (22-30) mmol/L Anion Gap 17 mmol/L BUN 33 H (7-17) mg/dL Creatinine 0.93 (0.52-1.04) mg/dL Est GFR (CKD-EPI)AfAm 75 (>60 ml/min/1.73 sqM) Est GFR (CKD-EPI)NonAf 65 (>60 ml/min/1.73 sqM) Glucose 106 H (74-99) mg/dL Lactic Ac Sepsis Rflx Plasma Lactic Acid Avelino (0.7-2.0) mmol/L Calcium 9.8 (8.4-10.2) mg/dL Total Bilirubin 0.8 (0.2-1.3) mg/dL AST 26 (14-36) U/L ALT 14 (4-34) U/L Alkaline Phosphatase 104 (38-126) U/L Troponin I (0.000-0.034) ng/mL Total Protein 6.6 (6.3-8.2) g/dL Albumin 3.2 L (3.5-5.0) g/dL 12/20/22 12/20/22 12/20/22 Range/Units 00:11 00:11 02:54 WBC (3.8-10.6) k/uL RBC (3.80-5.40) m/uL Hgb (11.4-16.0) gm/dL Hct (34.0-46.0) % MCV (80.0-100.0) fL MCH (25.0-35.0) pg MCHC (31.0-37.0) g/dL RDW (11.5-15.5) % Plt Count (150-450) k/uL MPV Neutrophils % % Lymphocytes % % Monocytes % % Eosinophils % % Basophils % % Neutrophils # (1.3-7.7) k/uL Lymphocytes # (1.0-4.8) k/uL Monocytes # (0-1.0) k/uL Eosinophils # (0-0.7) k/uL Basophils # (0-0.2) k/uL Hypochromasia Anisocytosis PT (9.0-12.0) sec INR (<1.2) APTT (22.0-30.0) sec Sodium (137-145) mmol/L Potassium (3.5-5.1) mmol/L Chloride (98-107) mmol/L Carbon Dioxide (22-30) mmol/L Anion Gap mmol/L BUN (7-17) mg/dL Creatinine (0.52-1.04) mg/dL Est GFR (CKD-EPI)AfAm (>60 ml/min/1.73 sqM) Est GFR (CKD-EPI)NonAf (>60 ml/min/1.73 sqM) Glucose (74-99) mg/dL Lactic Ac Sepsis Rflx Y Plasma Lactic Acid Avelino 2.2 H* (0.7-2.0) mmol/L Calcium (8.4-10.2) mg/dL Total Bilirubin (0.2-1.3) mg/dL AST (14-36) U/L ALT (4-34) U/L Alkaline Phosphatase (38-126) U/L Troponin I 0.050 H* (0.000-0.034) ng/mL Total Protein (6.3-8.2) g/dL Albumin (3.5-5.0) g/dL Disposition Clinical Impression: Dehydration, Hyponatremia, Altered mental status, Ascites Narrative: Possible pneumonia Disposition: ADMITTED IP TO THIS HOSP Condition: Poor Is patient prescribed a controlled substance at d/c from ED?: No
[2022-12-20 02:54] LABS: Potassium 3.5 mmol/L (3.5-5.1)
--- NOTE | 2022-12-20 03:26 | XR ---
EXAM: XR Chest, 2 Views CLINICAL HISTORY: ITS.REASON XR Reason: altered mental status TECHNIQUE: Frontal and lateral views of the chest. COMPARISON: No relevant prior studies available. FINDINGS: Lungs: Small linear opacity left lower lobe. Pleural space: No effusion. Heart: No cardiomegaly. Bones/joints: No acute findings. IMPRESSION: Small linear opacity left lower lobe.
[2022-12-20] MEDS ORDERED: SODIUM CHLORIDE 0.9% 600 ML IV ONE (03:57)
[2022-12-20] MEDS ORDERED: SODIUM CHLORIDE 0.9% 1,000 ML IV STA (03:57)
[2022-12-20] MEDS ORDERED: PNEUMONIA PROTOCOL UTILIZED 1 EACH MISC PO PRN (03:59)
[2022-12-20] MEDS ORDERED: IPRATROPIUM-ALBUTEROL 3 ML NEB INHALATION PRN (11:01)
[2022-12-20] MEDS ORDERED: MORPHINE SULFATE 4 MG/ML SYRINGE IVP PRN (11:40)
--- NOTE | 2022-12-20 12:35 | P.CONS ---
History of Present Illness - Reason for Consult Consult date: 12/20/22 Ovarian Ca , ascites, weakness - History of Present Illness The patient is a 67 -year-old white female, well known to our service. She follows with Dr. Tomlinson in the outpatient setting. The patient was diagnosed with ovarian cancer in 10/10. She was treated with surgery and chemotherapy. She was found to have recurrence on PET scan in 07/12, and was placed back on chemotherapy. The patient had been having increasing side effects from her regimen due to which chemo was stopped about 3-4 weeks prior to this admission. However she has continued to have generalized weakness, and poor appetite. She had paracentesis for her recurrent ascites on 12/02/22. She has developed progressive distention of the abdomen since then. Oral intake has been quite poor and has progressively declined. According to her family member who was present at the bedside and provided a significant amount of the history, the patient was starting to act confused, and slower and responses and comprehension, over the past 1-2 days, due to which she was brought into the emergency room. The patient states that she has been constipated. She has been passing gas, but infrequently. Over the past 1-2 weeks, she has been frequently nauseated with intermittent vomiting, which according to her family occurs every time she tries to eat Review of Systems Constitutional: Reports fatigue, Reports poor appetite, Reports weakness, Reports weight loss Eyes: denies blurred vision, denies pain Ears: deny: decreased hearing, ear discharge, earache, tinnitus Ears, nose, mouth and throat: Denies headache, Denies sore throat Cardiovascular: Reports decreased exercise tolerance Respiratory: Denies cough Gastrointestinal: Reports belching, Reports bloating, Reports constipation, Reports nausea, Reports vomiting Genitourinary: Denies dysuria, Denies hematuria Menstruation: Reports postmenopausal Musculoskeletal: Reports muscle weakness Integumentary: Denies pruritus, Denies rash Neurological: Reports change in mentation, Reports confusion, Reports weakness Psychiatric: Reports confusion Endocrine: Reports fatigue, Reports weight change Hematologic/Lymphatic: Reports as per HPI Past Medical History Past Medical History: Cancer, Osteoarthritis (OA) Additional Past Medical History / Comment(s): OVARIAN CANCER.HEART MURMUR. History of Any Multi-Drug Resistant Organisms: None Reported Past Surgical History: Adenoidectomy, Section, Hernia Repair, Tonsillectomy Additional Past Surgical History / Comment(s): CARPAL TUNNEL RIGHT HAND. PARTIAL HYSTERECTOMY WITH EXPLORATORY LAP 27 years ago. oviarian mass removal nov 2021- postive for CA. port placement Past Anesthesia/Blood Transfusion Reactions: No Reported Reaction Past Psychological History: No Psychological Hx Reported Smoking Status: Current every day smoker Past Alcohol Use History: None Reported Past Drug Use History: None Reported - Past Family History Mother Family Medical History: Cancer Additional Family Medical History / Comment(s): breast Medications and Allergies Home Medications Medication Instructions Recorded Confirmed Type Ondansetron [Zofran] 4 mg PO Q6H PRN 09/25/22 11/27/22 History Prochlorperazine [Compazine] 10 mg PO Q6H 10/14/22 11/27/22 History Simethicone [Gas-X] 125 mg PO DAILY 10/14/22 11/27/22 History HYDROcodone/APAP 7.5-325MG [[place] 5 - 325 mg PO QID PRN 11/27/22 11/27/22 History 7.5-325] HYDROcodone/APAP 7.5-325MG [[place] 7.5 - 325 mg PO QID PRN 11/27/22 11/27/22 History 7.5-325] Allergies Allergy/AdvReac Type Severity Reaction Status Date / Time No Known Allergies Allergy Verified 11/27/22 16:00 Physical Exam Vitals: Vital Signs Temp Pulse Resp BP Pulse Ox 12/20/22 08:01 97.9 F 112 H 17 102/65 96 12/20/22 07:25 112 H 17 133/80 95 12/20/22 06:00 112 H 19 98/78 99 12/20/22 02:09 116 H 20 107/59 99 12/20/22 00:06 97.8 F 122 H 26 H 96/73 99 Intake and Output 12/19/22 12/20/22 12/20/22 22:59 06:59 14:59 Other: Weight 72.575 kg - Constitutional General appearance: no acute distress - EENT Eyes: EOMI, PERRLA ENT: hearing grossly normal, normal oropharynx - Neck Neck: no lymphadenopathy Thyroid: bilateral: normal size - Respiratory Respiratory: bilateral: CTA - Cardiovascular Rhythm: regular Heart sounds: normal: S1, S2 - Gastrointestinal Free fluid positive by exam General gastrointestinal: decreased bowel sounds, distended - Integumentary Integumentary: normal - Neurologic Neurologic: CNII-XII intact - Musculoskeletal Musculoskeletal: generalized weakness, strength equal bilaterally - Psychiatric Comprehension, affect and responses appear to be slow, but are appropriate Psychiatric: A&O x's 3 Results CBC & Chem 7: 12/20/22 00:11 12/20/22 00:11 Labs: Abnormal Lab Results - Last 24 Hours (Table) 12/20/22 12/20/22 12/20/22 Range/Units 00:11 00:11 00:11 WBC 13.1 H (3.8-10.6) k/uL Hgb 10.1 L (11.4-16.0) gm/dL Hct 32.2 L (34.0-46.0) % RDW 17.4 H (11.5-15.5) % Plt Count 574 H (150-450) k/uL Neutrophils # 9.5 H (1.3-7.7) k/uL Sodium 128 L (137-145) mmol/L Chloride 82 L (98-107) mmol/L BUN 33 H (7-17) mg/dL Glucose 106 H (74-99) mg/dL Plasma Lactic Acid Avelino (0.7-2.0) mmol/L Troponin I 0.050 H* (0.000-0.034) ng/mL Albumin 3.2 L (3.5-5.0) g/dL 12/20/22 Range/Units 00:11 WBC (3.8-10.6) k/uL Hgb (11.4-16.0) gm/dL Hct (34.0-46.0) % RDW (11.5-15.5) % Plt Count (150-450) k/uL Neutrophils # (1.3-7.7) k/uL Sodium (137-145) mmol/L Chloride (98-107) mmol/L BUN (7-17) mg/dL Glucose (74-99) mg/dL Plasma Lactic Acid Avelino 2.2 H* (0.7-2.0) mmol/L Troponin I (0.000-0.034) ng/mL Albumin (3.5-5.0) g/dL Assessment and Plan (1) Altered mental status Narrative/Plan: The patient has been having multiple progressive symptoms as described in the HPI. She was supposed to follow-up with Dr Tomlinson for the office, but the current Hospital visit was facilitated by the change in mental status over the last 1-2 days. Her family member stated that they were concerned that she was developing a UTI. - The patient is apparently improved since coming to the hospital, but her affect and comprehension were definitely slow. This could be due to dehydration . An underlying infection causing, or adding to the symptoms is also within the differential. - Patient's x-rays possibility of a small pneumonia in the left lower lobe. She has not been able to void, and nursing was therefore asked to place a Workman catheter , and send the urine sample obtained thus for testing - She has been started on antibiotics for possible pneumonia. - Monitor with ongoing hydration and treatment for infection Current Visit: Yes Status: Acute Code(s): R41.82 - ALTERED MENTAL STATUS, UNSPECIFIED SNOMED Code(s): 485230655 (2) Dehydration Narrative/Plan: Intake has been significantly diminished, and has not improved since stopping chemotherapy. Could be due to persistent chemotherapy effect, but is more likely due to recurrent ascites and diminished bowel function. - IV hydration - Paracentesis - Check abdominal x-ray to evaluate for any ileus or obstruction Current Visit: Yes Status: Acute Code(s): E86.0 - DEHYDRATION SNOMED Code(s): 97476119 (3) Ascites Narrative/Plan: Appears to be recurrent by clinical exam. This could definitely be contributing to her symptoms. Ultrasound ordered. Proceed with therapeutic paracentesis as indicated Current Visit: Yes Status: Acute Code(s): R18.8 - OTHER ASCITES SNOMED Code(s): 081283546 Plan: Treatment for ovarian cancer is currently on hold due to progressive side effects from the prior regimen. Follow-up with Dr. Tomlinson after discharge to discuss the next step in treatment
--- NOTE | 2022-12-20 12:51 | XR ---
Abdomen. HISTORY: Nausea and vomiting. COMPARISON: None TECHNIQUE: 3 views the abdomen were obtained including a single upright view in 2 supine views. FINDINGS: Lung bases are clear and there is no free air beneath the diaphragm. There is a paucity of abdominal gas the bowel gas pattern is nonspecific and there is no evidence of obstruction. No suspicious abdominal or pelvic calcifications are seen. IMPRESSION: Nonspecific abdomen without evidence of free air or obstruction.
--- NOTE | 2022-12-20 16:54 | P.HPIM ---
History of Present Illness H&P Date: 12/20/22 Chief Complaint: Altered mental status/weakness 67-year-old woman with history of metastatic ovarian cancer who is here to have evaluation for changes in her mental status. The patient reportedly was receiving chemotherapy but states that it was "too strong for her, so it was stopped" over the past couple of weeks she has been taking less and less oral intake. She has not really had much in way of fluids for the past few days. Tonight she was becoming somewhat confused and disoriented so he brought her to have evaluation here. In addition, the patient has not been taking her home analgesics. Blood work completed in ED reveals a WBC of 13.1, hemoglobin of 10.1 and platelet count of 574, sodium 128, potassium 3.5, BUN/creatinine of 32/0.93, lactic acid level of 2.2 and troponin of 0.050 Chest x-ray reveals possible small left lower lobe pneumonia Review of Systems REVIEW OF SYSTEMS: CONSTITUTIONAL: No fever, no malaise, no fatigue. HEENT: No recent visual problems or hearing problems. Denied any sore throat. CARDIOVASCULAR: No chest pain, orthopnea, PND, no palpitations, no syncope. PULMONARY: No shortness of breath, no cough, no hemoptysis. GASTROINTESTINAL: No diarrhea, no nausea, no vomiting, no abdominal pain. NEUROLOGICAL: No headaches, no weakness, no numbness. HEMATOLOGICAL: Denies any bleeding or petechiae. GENITOURINARY: Denies any burning micturition, frequency, or urgency. MUSCULOSKELETAL/RHEUMATOLOGICAL: Denies any joint pain, swelling, or any muscle pain. ENDOCRINE: Denies any polyuria or polydipsia. The rest of the 14-point review of systems is negative. Past Medical History Past Medical History: Cancer, Osteoarthritis (OA) Additional Past Medical History / Comment(s): OVARIAN CANCER.HEART MURMUR. History of Any Multi-Drug Resistant Organisms: None Reported Past Surgical History: Adenoidectomy, Section, Hernia Repair, Ton sillectomy Additional Past Surgical History / Comment(s): CARPAL TUNNEL RIGHT HAND. PARTIAL HYSTERECTOMY WITH EXPLORATORY LAP 27 years ago. oviarian mass removal nov 2021- postive for CA. port placement Past Anesthesia/Blood Transfusion Reactions: No Reported Reaction Past Psychological History: No Psychological Hx Reported Smoking Status: Current every day smoker Past Alcohol Use History: None Reported Past Drug Use History: None Reported - Past Family History Mother Family Medical History: Cancer Additional Family Medical History / Comment(s): breast Medications and Allergies Home Medications Medication Instructions Recorded Confirmed Type HYDROcodone/APAP 10-325MG [[place] 1 tab PO BID 12/20/22 12/20/22 History 10-325] HYDROcodone/APAP 10-325MG [[place] 1 tab PO BID PRN 12/20/22 12/20/22 History 10-325] Allergies Allergy/AdvReac Type Severity Reaction Status Date / Time No Known Allergies Allergy Verified 12/20/22 13:09 Physical Exam Vitals: Vital Signs Temp Pulse Resp BP Pulse Ox 12/20/22 08:01 97.9 F 112 H 17 102/65 96 12/20/22 07:25 112 H 17 133/80 95 12/20/22 06:00 112 H 19 98/78 99 12/20/22 02:09 116 H 20 107/59 99 12/20/22 00:06 97.8 F 122 H 26 H 96/73 99 Intake and Output 12/19/22 12/20/22 12/20/22 22:59 06:59 14:59 Other: Weight 72.575 kg PHYSICAL EXAMINATION: GENERAL: The patient is alert and oriented x3, not in any acute distress. Well developed, well nourished. HEENT: Pupils are round and equally reacting to light. EOMI. No scleral icterus. No conjunctival pallor. Normocephalic, atraumatic. No pharyngeal erythema. No thyromegaly. CARDIOVASCULAR: S1 and S2 present. No murmurs, rubs, or gallops. PULMONARY: Chest is clear to auscultation, no wheezing or crackles. ABDOMEN: Soft, nontender, nondistended, normoactive bowel sounds. No palpable organomegaly. MUSCULOSKELETAL: No joint swelling or deformity. EXTREMITIES: No cyanosis, clubbing, or pedal edema. NEUROLOGICAL: Gross neurological examination did not reveal any focal deficits. SKIN: No rashes. Results CBC & Chem 7: 12/20/22 00:11 12/20/22 00:11 Labs: Abnormal Lab Results - Last 24 Hours (Table) 12/20/22 12/20/22 12/20/22 Range/Units 00:11 00:11 00:11 WBC 13.1 H (3.8-10.6) k/uL Hgb 10.1 L (11.4-16.0) gm/dL Hct 32.2 L (34.0-46.0) % RDW 17.4 H (11.5-15.5) % Plt Count 574 H (150-450) k/uL Neutrophils # 9.5 H (1.3-7.7) k/uL Sodium 128 L (137-145) mmol/L Chloride 82 L (98-107) mmol/L BUN 33 H (7-17) mg/dL Glucose 106 H (74-99) mg/dL Plasma Lactic Acid Avelino (0.7-2.0) mmol/L Troponin I 0.050 H* (0.000-0.034) ng/mL Albumin 3.2 L (3.5-5.0) g/dL 12/20/22 Range/Units 00:11 WBC (3.8-10.6) k/uL Hgb (11.4-16.0) gm/dL Hct (34.0-46.0) % RDW (11.5-15.5) % Plt Count (150-450) k/uL Neutrophils # (1.3-7.7) k/uL Sodium (137-145) mmol/L Chloride (98-107) mmol/L BUN (7-17) mg/dL Glucose (74-99) mg/dL Plasma Lactic Acid Avelino 2.2 H* (0.7-2.0) mmol/L Troponin I (0.000-0.034) ng/mL Albumin (3.5-5.0) g/dL Thrombosis Risk Factor Assmnt - Choose All That Apply Each Risk Factor Represents 2 Points: Age 61-74 years Thrombosis Risk Factor Assessment Total Risk Factor Score: 2 Thrombosis Risk Factor Assessment Level: Low Risk Assessment and Plan Assessment: 1. Altered mental status; likely metabolic encephalopathy; related to pneumonia, CHF, dehydration 2. Left lower lobe pneumonia; patient has been placed on IV Rocephin and azithromycin; DuoNeb nebulizer treatments; we will monitor CBC, CMP and pro- calcitonin 3. Acute renal injury/dehydration; IV fluid hydration; monitor strict ALFA's, daily weights, renal function and electrolytes; avoid nephrotoxins and hypotension 4. Lactic acidosis; likely related to pneumonia versus dehydration; IV fluid hydration with normal saline at a rate of 100 mL an hour; monitor lactic acid levels 5. Ascites; patient has been evaluated by oncology; recommending abdominal ultrasound and to proceed with therapeutic paracentesis as indicated 6. Ovarian cancer; patient was diagnosed in September 2021 and has been treated with surgery and chemotherapy; patient had a PET scan done in June 2022 which revealed recurrence and patient has been placed back on chemotherapy 7. Intractable nausea and vomiting; symptomatic treatment DVT prophylaxis; SCDs/subcu Lovenox CODE STATUS; full code
[2022-12-20] MEDS: SODIUM CHLORIDE 0.9% 1,000 ML IV SCH (17:52)
[2022-12-20] MEDS ORDERED: SYMBICORT 160-4.5 MCG INHALER INHALATION SCH (20:00)
[2022-12-20 20:05] LABS: Amphetamine Screen,Urine Not Detected (NotDetected); Barbiturate Screen,Urine Not Detected (NotDetected); Benzodiazepines Screen,Urine Not Detected (NotDetected); Cocaine Screen,Urine Not Detected (NotDetected); Methadone Screen, Urine Not Detected (NotDetected); Opiate Screen,Urine Detected (NotDetected); Oxycodone Screen, Urine Not Detected (NotDetected); Phencyclidine Screen,Urine Not Detected (NotDetected); Tricyclic Antidepressant,Urine Not Detected (NotDetected); Urn Cannabinoid Scrn Detected (NotDetected)
[2022-12-20] MEDS: ONDANSETRON 4 MG/2 ML VIAL IVP PRN (21:56)
--- NOTE | 2022-12-20 22:13 | CT ---
EXAMINATION TYPE: CT chest angio for PE CT DLP: 156.80 mGycm, Automated exposure control for dose reduction was used. DATE OF EXAM: 12/20/2022 9:20 PM COMPARISON: Chest radiograph from same day. Previous PET CT 07/11/2022 CLINICAL INDICATION:Female, 67 years old with history of elevated d-dimer, poss PE. hx of ovarian ca TECHNIQUE/CONTRAST: CTA scan of the thorax is performed with IV Contrast, patient injected with 80ml mL of Isovue 370, ID P images are created and reviewed these are created on a separate workstation.. FINDINGS: Pulmonary Artery: There is no evidence for a filling defect within the pulmonary vasculature to sugge st acute pulmonary embolism. The pulmonary artery is of normal size. Lungs/Pleura: Small left pleural effusion. Small left basilar opacity, likely atelectasis adjacent to the effusion. Mild centrilobular emphysema bilaterally. No definite lung mass is seen. Grossly stabl e tiny pulmonary nodules, would be best assessed with outpatient CT follow-up. No pneumothorax. Airway: Large airways are patent. Heart: Heart is upper normal limits for size. Coronary arterial calcifications noted. Vasculature: Ectasia of the ascending aorta up to 3.6 cm. No dissection flap is seen. There are mild atherosclerotic calcifications. Mediastinum: No gross evidence of adenopathy. Musculoskeletal: No acute osseous abnormality seen. [id number]-[id number] degenerative changes of the spin e. Soft Tissues: Esophagus appears mildly to moderately distended with fluid. Lower neck: No significant findings. Right chest Mediport with tip in the cavoatrial junction. Upper Abdomen: Interval development of significant lobulated low-density structure/s in the partially visualized upper abdomen, abutting the liver, spleen, and stomach. IMPRESSION: 1. No evidence of pulmonary embolism. 2. Small left pleural effusion, with adjacent opacity likely atelectasis. 3. Esophagus appears mildly to moderately distended with fluid, this could be due to reflux or dysmo tility. 4. Interval development of significant lobulated low-density structure/s in the partially visualized upper abdomen since 07/11/2022, could be related to ascites and/or metastatic deposits.
--- NOTE | 2022-12-20 22:14 | US ---
EXAMINATION TYPE: US venous doppler duplex LE BI DATE OF EXAM: 12/20/2022 7:18 PM COMPARISON: NONE CLINICAL INDICATION: Female, 67 years old with history of d-dimer, DVT; Elevated D-Dimer SIDE PERFORMED: Bilateral TECHNIQUE: The lower extremity deep venous system is examined utilizing real time linear array sonog rafael with graded compression, doppler sonography and color-flow sonography. VESSELS IMAGED: Common Femoral Vein Deep Femoral Vein Greater Saphenous Vein * Femoral Vein Popliteal Vein Small Saphenous Vein * Proximal Calf Veins (* superficial vessels) Right Leg: Negative for DVT Left Leg: Negative for DVT IMPRESSION: No evidence for DVT within the bilateral lower extremities imaged from the groin to the upper calves.
[2022-12-20] MEDS: HYDROcodone/APAP 7.5-325MG 1 EACH TAB PO PRN (22:32)
[2022-12-21] MEDS: SODIUM CHLORIDE 0.9% 1,000 ML IV SCH ×2 (05:17→19:46)
--- NOTE | 2022-12-21 07:20 | XR ---
EXAMINATION TYPE: XR chest 1V portable DATE OF EXAM: 12/21/2022 5:37 AM CLINICAL INDICATION:Female, 67 years old with history of pneumonia; COMPARISON: Chest radiographs from 12/20/2022 TECHNIQUE: XR chest 1V portable Frontal view of the chest. FINDINGS: Lungs/Pleura: Linear left lower lobe opacity is stable. There is no evidence of pleural effusion, foc al consolidation, or pneumothorax. Pulmonary vascularity: Unremarkable. Heart/mediastinum: Cardiomediastinal silhouette is unremarkable. Musculoskeletal: No acute osseous pathology. Other findings: None Lines/Tubes: [id number] projecting over the right hemithorax with distal tip at the cavoatrial junction. IMPRESSION: Stable left lower lobe linear opacity likely representing atelectasis and/or scarring. Correlate for pneumonia.
[2022-12-21] MEDS: AZITHROMYCIN 500 MG TAB PO SCH (08:44)
[2022-12-21] MEDS ORDERED: ENOXAPARIN 30 MG/0.3 ML SYRINGE SQ SCH (09:00)
--- NOTE | 2022-12-21 11:59 | US ---
EXAMINATION TYPE: US abdomen limited DATE OF EXAM: 12/21/2022 COMPARISON: 11/27/2022,12/20/2022 CLINICAL INDICATION: Female, 67 years old with history of ascites; Technique: Grayscale imaging of the 4 quadrants. FINDINGS: Loculated ascites within all 4 quadrants IMPRESSION: Loculated effusion throughout the abdomen.
[2022-12-21 12:21] LABS: Anisocytosis Slight; Basophils % (A) 0 %; Eosinophils % (A) 0 %; HCT 29.2 % (34.0-46.0); Hypochromasia Marked; Lymphocytes # (A) 1.7 k/uL (1.0-4.8); Lymphocytes % (A) 15 %; MCH 25.9 pg (25.0-35.0); MCHC 30.9 g/dL (31.0-37.0); MCV 83.8 fL (80.0-100.0); Mean Platelet Volume 7.5; Monocytes # (A) 0.6 k/uL (0-1.0); Monocytes % (A) 5 %; Neutrophils # (A) 8.7 k/uL (1.3-7.7); Neutrophils % (A) 79 %; Platelet Count 481 k/uL (150-450); RBC 3.48 m/uL (3.80-5.40); RDW 17.7 % (11.5-15.5); WBC 11.1 k/uL (3.8-10.6)
[2022-12-21 12:33] LABS: African American GFR (CKD) >90 (>60 ml/min/1.73 sqM); Anion Gap 13 mmol/L; Blood Urea Nitrogen 27 mg/dL (7-17); Calcium 8.6 mg/dL (8.4-10.2); Carbon Dioxide 30 mmol/L (22-30); Chloride 89 mmol/L (98-107); Glucose 101 mg/dL (74-99); Non-African American GFR(CKD) 83 (>60 ml/min/1.73 sqM); Potassium 2.9 mmol/L (3.5-5.1); Sodium 132 mmol/L (137-145)
--- NOTE | 2022-12-21 13:02 | P.PN ---
Subjective Progress Note Date: 12/21/22 Principal diagnosis: dehydration, n/v At today's visit patient is resting comfortably in bed. She reports no changes in symptoms. Reports persisting nausea and spitting up saliva, no acute vomiting. Patient remains afebrile, continues on antibiotics. Objective - Vital Signs Vital signs: Vital Signs Temp 98.6 F 12/21/22 08:00 Pulse 104 H 12/21/22 08:00 Resp 18 12/21/22 08:00 BP 102/76 12/21/22 08:00 Pulse Ox 97 12/21/22 08:00 FiO2 Intake & Output 12/20/22 12/21/22 12/21/22 18:59 06:59 18:59 Output Total 200 250 Balance -200 -250 Output: Urine 200 250 Other: Voiding Method Indwelling Catheter Indwelling Catheter - Constitutional General appearance: Present: average body habitus, no acute distress - EENT Eyes: Present: anicteric sclerae, EOMI ENT: Present: hearing grossly normal - Respiratory Details: breathing even and unlabored - Cardiovascular Details: skin warm and dry - Gastrointestinal General gastrointestinal: Present: distended - Integumentary Integumentary: Absent: cyanotic, jaundiced - Neurologic Neurologic Comment(s): grossly intact - Musculoskeletal Musculoskeletal: Present: generalized weakness - Psychiatric Psychiatric: Present: A&O x's 3, appropriate affect, intact judgment & insight - Labs CBC & Chem 7: 12/21/22 11:50 12/21/22 10:05 Labs: Abnormal Lab Results - Last 24 Hours (Table) 12/20/22 12/21/22 12/21/22 Range/Units 19:35 10:05 11:50 WBC 11.1 H (3.8-10.6) k/uL RBC 3.48 L (3.80-5.40) m/uL Hgb 9.0 L (11.4-16.0) gm/dL Hct 29.2 L (34.0-46.0) % MCHC 30.9 L (31.0-37.0) g/dL RDW 17.7 H (11.5-15.5) % Plt Count 481 H (150-450) k/uL Neutrophils # 8.7 H (1.3-7.7) k/uL Sodium 132 L (137-145) mmol/L Potassium 2.9 L (3.5-5.1) mmol/L Chloride 89 L (98-107) mmol/L BUN 27 H (7-17) mg/dL Glucose 101 H (74-99) mg/dL Urine Opiates Screen Detected H (NotDetected) U Marijuana (THC) Screen Detected H (NotDetected) Microbiology - Last 24 Hours (Table) 12/20/22 04:01 Blood Culture Gram Stain - Preliminary Blood Blood Culture - Preliminary Gram Neg Bacilli - Imaging and Cardiology Chest x-ray: report reviewed Abdominal x-ray: report reviewed CT scan - chest: report reviewed Assessment and Plan (1) Altered mental status Current Visit: Yes Status: Acute Priority: High Code(s): R41.82 - ALTERED MENTAL STATUS, UNSPECIFIED SNOMED Code(s): 724927160 (2) Ascites Current Visit: Yes Status: Acute Priority: High Code(s): R18.8 - OTHER ASCITES SNOMED Code(s): 728837932 (3) Dehydration Current Visit: Yes Status: Acute Priority: High Code(s): E86.0 - DEHYDRATION SNOMED Code(s): 98611814 Plan: Altered mental status: -The patient has been having multiple progressive symptoms. She was supposed to follow-up with Dr Tomlinson in the office, but the current Hospital visit was facilitated by the change in mental status over the last 1-2 days prior to admission. Her family member stated that they were concerned that she was developing a UTI. - The patient is apparently improved since coming to the hospital. Mentation improved today. An underlying infection causing, or adding to the symptoms is a lso within the differential. - Patient's x-rays showed possibility of a small pneumonia in the left lower lobe. She has not been able to void, and nursing was therefore asked to place a Workman catheter, UA/culture pending -Blood culture positive for gram neg bacilli. Continues on abx, ID following - Monitor with ongoing hydration and treatment for infection Dehydration: -Intake has been significantly diminished, and has not improved since stopping chemotherapy. Could be due to persistent chemotherapy effect, but is more likely due to recurrent ascites and diminished bowel function. Abdominal x-ray revealed nonspecific abdomen without evidence of free air or obstruction - IV hydration and anti-emetics as needed Ascites: -Appears to be recurrent by clinical exam. This could definitely be contributing to her symptoms. -IR consult placed for evaluation for paracentesis. Cytology/fluid analysis ordered Plan: Treatment for ovarian cancer is currently on hold due to progressive side effects from the prior regimen. Follow-up with Dr. Tomlinson after discharge to discuss the next step in treatment
[2022-12-21] MEDS ORDERED: Potassium Replacement Protocol 1 EACH MISC MISCELLANE PRN (14:17)
--- NOTE | 2022-12-21 14:18 | P.PN ---
Subjective Progress Note Date: 12/21/22 67-year-old woman with history of metastatic ovarian cancer who is here to have evaluation for changes in her mental status. The patient reportedly was receiving chemotherapy but states that it was "too strong for her, so it was stopped" over the past couple of weeks she has been taking less and less oral intake. She has not really had much in way of fluids for the past few days. Tonight she was becoming somewhat confused and disoriented so he brought her to have evaluation here. In addition, the patient has not been taking her home analgesics. Blood work completed in ED reveals a WBC of 13.1, hemoglobin of 10.1 and platelet count of 574, sodium 128, potassium 3.5, BUN/creatinine of 32/0.93, lactic acid level of 2.2 and troponin of 0.050 Chest x-ray reveals possible small left lower lobe pneumonia 12/21. Patient seen and examined. Patient not confused, answering appropriately, currently alert 3. Abdominal is distended REVIEW OF SYSTEMS: CONSTITUTIONAL: No fever, no malaise,. CARDIOVASCULAR: No chest pain, no palpitations, no syncope. PULMONARY: No shortness of breath, no cough, GASTROINTESTINAL: No diarrhea, no nausea, no vomiting, no abdominal pain. NEUROLOGICAL: No headaches, no weakness, PHYSICAL EXAMINATION: GENERAL: The patient is alert and oriented x3, not in any acute distress. Well developed, well nourished. HEENT: Pupils are round and equally reacting to light. EOMI. No scleral icterus. No conjunctival pallor. Normocephalic, atraumatic. No pharyngeal erythema. No thyromegaly. CARDIOVASCULAR: S1 and S2 present. No murmurs, rubs, or gallops. PULMONARY: Chest is clear to auscultation, no wheezing or crackles. ABDOMEN: Distended, normoactive bowel sounds. No palpable organomegaly. MUSCULOSKELETAL: No joint swelling or deformity. EXTREMITIES: No cyanosis, clubbing, or pedal edema. NEUROLOGICAL: Gross neurological examination did not reveal any focal deficits. SKIN: No rashes. Assessment and plan Bacteremia Sepsis Acute infectious encephalopathy Acute kidney injury Lactic acidosis Ascites Bacterial pneumonia Metastatic ovarian cancer Monitor vital signs Monitor CBC Monitor CMP Continue telemetry monitoring CTA chest negative for PE, shows small left pleural effusions. Follow-up on blood cultures, blood culture growing E. coli Continue IV Rocephin and azithromycin Paracentesis ordered Hematology oncology consulted ID consulted Labs and medication were reviewed.. Continue same treatment. Continue with sy mptomatic treatment. Resume home medication. Monitor labs and vitals. DVT and GI prophylaxis. Further recommendations as per clinical course of the patient Dictation was produced using [employer] dictation software. please excuse any grammatical, word or spelling errors. Objective - Vital Signs Vital signs: Vital Signs Temp 98.6 F 12/21/22 08:00 Pulse 104 H 12/21/22 08:00 Resp 18 12/21/22 08:00 BP 102/76 12/21/22 08:00 Pulse Ox 97 12/21/22 08:00 FiO2 Intake & Output 12/20/22 12/21/22 12/21/22 18:59 06:59 18:59 Output Total 200 Balance -200 Output: Urine 200 Other: Voiding Method Indwelling Catheter - Labs CBC & Chem 7: 12/21/22 11:50 12/21/22 10:05 Labs: Abnormal Lab Results - Last 24 Hours (Table) 12/20/22 12/20/22 Range/Units 11:55 19:35 D-Dimer 10.55 H (<0.60) mg/L FEU Urine Opiates Screen Detected H (NotDetected) U Marijuana (THC) Screen Detected H (NotDetected) Microbiology - Last 24 Hours (Table) 12/20/22 04:01 Blood Culture Gram Stain - Preliminary Blood Blood Culture - Preliminary Gram Neg Bacilli
[2022-12-21] MEDS: HYDROcodone/APAP 7.5-325MG 1 EACH TAB PO PRN (16:03)
[2022-12-21] MEDS: POTASSIUM CHLORIDE ER 20 MEQ TAB.ER PO SCH ×3 (16:03→18:06)
[2022-12-21 17:45] LABS: Appearance,Urine Turbid (Clear); Bilirubin,Urine Negative (Negative); Blood,Urine Moderate (Negative); Color,Urine Yellow; Glucose,Urine (UA) Negative (Negative); Ketones,Urine 1+ (Negative); Leukocyte Esterase,Urine Large (Negative); Mucus,Urine Rare /hpf; Nitrite,Urine Negative (Negative); Protein,Urine 1+ (Negative); RBC,Urine 67 /hpf (0-5); Squamous Epithelial Cell,Urine <1 /hpf (0-4); Uric Acid Crystals,Urine Occasional /hpf; Urobilinogen,Urine <2.0 mg/dL (<2.0); WBC,Urine 15 /hpf (0-5)
[2022-12-21] MEDS: ONDANSETRON 4 MG/2 ML VIAL IVP PRN (19:48)
[2022-12-22] MEDS: SODIUM CHLORIDE 0.9% 1,000 ML IV SCH ×2 (03:53→20:28)
--- NOTE | 2022-12-22 08:39 | P.CONS ---
History of Present Illness - Reason for Consult Consult date: 12/21/22 Bacteremia Requesting physician: Maykel Crews - Chief Complaint Mental status changes decrease oral intake x few days - History of Present Illness Patient is a 67-year-old female with a past medical history significant for ovarian cancer with recurrence on chemo with a right chest wall Mediport last chemo about 3 weeks ago also with history of osteoarthritis patien t presenting to the hospital yesterday for evaluation of mental status changes hospital patient complaining of decreased oral intake with confusion the patient was brought into the hospital patient denies having any headache or URI symptoms denies any chest pain shortness of breath minimal cough some nausea and vomiting no significant down pain diarrhea or did have some urinary symptoms of burning patient on presentation to the hospital was afebrile and no fever has been recorded subsequently patient did have a white count of 13.1 with a left shift creatinine was normal liver exams are normal troponin is elevated urine drug screen positive for opiates and marijuana did have positive UA and blood cultures Positive for gram-negative bacilli prompting this infectious disease consultation patient did have a chest x-ray small in opacity left lower lobe also have a CT angiogram of the chest no evidence of PE small effusion significant lobulated low-density structure in the upper abdominal abdominal ultrasound loculated effusion throughout the abdominal patient started on ceftriaxone infectious was consulted for further management of antibiotic therapy Review of Systems Positive point and negatives has been mentioned in the HPI, complete review of systems was performed and all other systems are negative Past Medical History Past Medical History: Cancer, Osteoarthritis (OA) Additional Past Medical History / Comment(s): OVARIAN CANCER.HEART MURMUR. History of Any Multi-Drug Resistant Organisms: None Reported Past Surgical History: Adenoidectomy, Section, Hernia Repair, Tonsillectomy Additional Past Surgical History / Comment(s): CARPAL TUNNEL RIGHT HAND. PARTIAL HYSTERECTOMY WITH EXPLORATORY LAP 27 years ago. oviarian mass removal nov 2021- postive for CA. port placement Past Anesthesia/Blood Transfusion Reactions: No Reported Reaction Past Psychological History: No Psychological Hx Reported Smoking Status: Current every day smoker Past Alcohol Use History: None Reported Past Drug Use History: None Reported - Past Family History Mother Family Medical History: Cancer Additional Family Medical History / Comment(s): breast Medications and Allergies Home Medications Medication Instructions Recorded Confirmed Type HYDROcodone/APAP 10-325MG [[place] 1 tab PO BID 12/20/22 12/20/22 History 10-325] HYDROcodone/APAP 10-325MG [[place] 1 tab PO BID PRN 12/20/22 12/20/22 History 10-325] Allergies Allergy/AdvReac Type Severity Reaction Status Date / Time No Known Allergies Allergy Verified 12/20/22 13:09 Physical Exam Vitals: Vital Signs Temp Pulse Resp BP BP Pulse Ox 12/21/22 08:00 98.6 F 104 H 18 102/76 97 12/21/22 06:00 98.4 F 106 H 16 114/79 97 12/21/22 03:59 97 12/21/22 02:00 107 H 14 12/21/22 01:25 107 H 14 117/80 97 12/20/22 21:30 98.5 F 106 H 16 118/81 98 12/20/22 20:00 106 H 16 12/20/22 16:00 91 18 109/72 95 12/20/22 12:00 107 H 18 103/79 93 L Intake and Output 12/20/22 12/21/22 12/21/22 22:59 06:59 14:59 Output Total 200 Balance -200 Output: Urine 200 Other: Voiding Method Indwelling Catheter Indwelling Catheter Indwelling Catheter GENERAL DESCRIPTION: Elderly female lying in bed, no distress. No tachypnea or accessory muscle of respiration use. HEENT: Shows Pallor , no scleral icterus. Oral mucous membrane is dry. NECK: Trachea central, no thyromegaly. LUNGS: Unlabored breathing. Clear to auscultation anteriorly. No wheeze or crackle. HEART: S1, S2, regular rate and rhythm. No loud murmur ABDOMEN: Soft, mild distention and tenderness EXTREMITIES: No edema of feet. SKIN: No rash, no masses palpable. NEUROLOGICAL: The patient is awake, alert, oriented x3, mood and affect normal. Results CBC & Chem 7: 12/25/22 06:01 12/25/22 06:01 Labs: Abnormal Lab Results - Last 24 Hours (Table) 12/20/22 12/20/22 Range/Units 11:55 19:35 D-Dimer 10.55 H (<0.60) mg/L FEU Urine Opiates Screen Detected H (NotDetected) U Marijuana (THC) Screen Detected H (NotDetected) Microbiology - Last 24 Hours (Table) 12/20/22 04:01 Blood Culture Gram Stain - Preliminary Blood Blood Culture - Preliminary Gram Neg Bacilli Assessment and Plan (1) E coli bacteremia Current Visit: Yes Status: Acute Code(s): R78.81 - BACTEREMIA; B96.20 - UNSP ESCHERICHIA COLI THE CAUSE OF DISEASES CLASSD [facility] SNOMED Code(s): 50 [id number] Plan: 1patient presented to hospital with weakness and mental status changes which is likely multifactorial in this patient with ovarian cancer on chemotherapy now with evidence of E. coli bacteremia source likely urinary however underlying abdominal source not entirely excluded has there was evidence of loculated abdominal fluid, may benefit from a CT for better definition of intra-abdominal pathology 2-we will give the patient Rocephin 2 g daily 3-check inflammatory markers We will follow on clinical condition and cultures to further adjust medication if needed Thank you for this consultation we will follow the patient along with you Dictation was produced using [employer] dictation software. please excuse any grammatical, word or spelling errors. Time with Patient: Greater than 30
[2022-12-22 09:38] LABS: BUN/Creat Ratio 28.12 Ratio (12.00-20.00); Blood Urea Nitrogen 22.5 mg/dL (9.0-27.0); Calcium 8.9 mg/dL (8.7-10.3); Carbon Dioxide 29.5 mmol/L (21.6-31.8); Chloride 92 mmol/L (96-109); Glucose 95 mg/dL (70-110); Sodium 137 mmol/L (135-145)
[2022-12-22] MEDS: AZITHROMYCIN 500 MG TAB PO SCH (09:46)
--- NOTE | 2022-12-22 11:56 | CT ---
EXAMINATION TYPE: CT abdomen pelvis w con DATE OF EXAM: 12/22/2022 COMPARISON: 10/15/2021 HISTORY: abdominal distention, fever CT DLP: 243.00 mGycm CONTRAST: CT scan of the abdomen and pelvis is performed without Oral Contrast and with IV Contrast, patient in jected with 100 mL of Isovue 300. FINDINGS: LUNG BASES-: No visible nodule. No infiltrate. Small left-sided pleural effusion. LIVER/GB: No calcified gallstones. No space occupying hepatic lesion. Biliary tree is of normal ca liber. PANCREAS: No inflammation. No distinct mass. SPLEEN: No splenic enlargement. No lesion seen. ADRENALS: No nodule. No thickening. KIDNEYS/BLADDER: No hydronephrosis. No nephrolithiasis. No distinct renal mass. Workman balloon cath eter seen within the urinary bladder lumen. BOWEL: There is small bowel wall thickening which is nonspecific and can reflect infectious, inflamma tory or ischemic causes. Correlate clinically. There is nonvisualization of the appendix. Fluid is se en within the esophagus compatible with reflux. GENITAL ORGANS: No gross abnormality. LYMPH NODES: No greater than 1cm abdominal or pelvic lymph nodes are appreciated. AORTA: Hysterectomy changes noted. OSSEOUS STRUCTURES: No significant abnormality is seen. OTHER: Large partially loculated ascites within the upper abdomen extending into the lower abdomen an d interloop regions on the right. Infected ascites or peritonitis is not excluded. IMPRESSION: 1. Large amount of intra-abdominal ascites as discussed above which for the most part appears to be l oculated. Infected ascites or peritonitis should be excluded. 2. Small bowel wall thickening which is nonspecific and could be related to infectious, inflammatory or ischemic causes. Correlate clinically.
[2022-12-22] MEDS ORDERED: ONDANSETRON 4 MG/2 ML VIAL IVP PRN (13:01)
[2022-12-22 14:03] VITALS: BMI 28.3
--- NOTE | 2022-12-22 14:39 | P.PN ---
Subjective Progress Note Date: 12/22/22 67-year-old woman with history of metastatic ovarian cancer who is here to have evaluation for changes in her mental status. The patient reportedly was receiving chemotherapy but states that it was "too strong for her, so it was stopped" over the past couple of weeks she has been taking less and less oral intake. She has not really had much in way of fluids for the past few days. Tonight she was becoming somewhat confused and disoriented so he brought her to have evaluation here. In addition, the patient has not been taking her home analgesics. Blood work completed in ED reveals a WBC of 13.1, hemoglobin of 10.1 and platelet count of 574, sodium 128, potassium 3.5, BUN/creatinine of 32/0.93, lactic acid level of 2.2 and troponin of 0.050 Chest x-ray reveals possible small left lower lobe pneumonia 12/21. Patient seen and examined. Patient not confused, answering appropriately, currently alert 3. Abdominal is distended 12/22. Patient seen and examined. Lab work done this morning showed sodium 137, potassium 4, BUN 22.5, creatinine 0.8. Patient going for paracentesis today REVIEW OF SYSTEMS: CONSTITUTIONAL: No fever, no malaise,. CARDIOVASCULAR: No chest pain, no palpitations, no syncope. PULMONARY: No shortness of breath, no cough, GASTROINTESTINAL: No diarrhea, no nausea, no vomiting, no abdominal pain. NEUROLOGICAL: No headaches, no weakness, PHYSICAL EXAMINATION: GENERAL: The patient is alert and oriented x3, not in any acute distress. Well developed, well nourished. HEENT: Pupils are round and equally reacting to light. EOMI. No scleral icterus. No conjunctival pallor. Normocephalic, atraumatic. No pharyngeal erythema. No thyromegaly. CARDIOVASCULAR: S1 and S2 present. No murmurs, rubs, or gallops. PULMONARY: Chest is clear to auscultation, no wheezing or crackles. ABDOMEN: Distended, normoactive bowel sounds. No palpable organomegaly. MUSCULOSKELETAL: No joint swelling or deformity. EXTREMITIES: No cyanosis, clubbing, or pedal edema. NEUROLOGICAL: Gross neurological examination did not reveal any focal deficits. SKIN: No rashes. Assessment and plan Bacteremia Sepsis Acute infectious encephalopathy Acute kidney injury Lactic acidosis Ascites Bacterial pneumonia Metastatic ovarian cancer Monitor vital signs Monitor CBC Monitor CMP Continue telemetry monitoring CTA chest negative for PE, shows small left pleural effusions. Follow-up on blood cultures, blood culture growing E. coli Continue IV Rocephin Abdominal ultrasound showed loculated ascites in all 4 quadrants, IR consulted Follow-up on hematology oncology recommendations Follow-up in ID recommendations, ID recommended CT abdominal pelvis Labs and medication were reviewed.. Continue same treatment. Continue with symptomatic treatment. Resume home medication. Monitor labs and vitals. DVT and GI prophylaxis. Further recommendations as per clinical course of the patient Dictation was produced using [employer] dictation software. please excuse any grammatical, word or spelling errors. Objective - Vital Signs Vital signs: Vital Signs Temp 97.5 F L 12/22/22 07:30 Pulse 91 12/22/22 07:30 Resp 17 12/22/22 07:30 BP 93/64 12/22/22 07:30 Pulse Ox 98 12/22/22 07:30 FiO2 Intake & Output 12/21/22 12/22/22 12/22/22 18:59 06:59 18:59 Output Total 350 Balance -350 Output: Urine 350 Other: Voiding Method Indwelling Catheter Indwelling Catheter # Voids 100 - Labs CBC & Chem 7: 12/21/22 11:50 12/22/22 05:33 Labs: Abnormal Lab Results - Last 24 Hours (Table) 12/21/22 12/21/22 12/21/22 Range/Units 10:05 11:50 17:24 WBC 11.1 H (3.8-10.6) k/uL RBC 3.48 L (3.80-5.40) m/uL Hgb 9.0 L (11.4-16.0) gm/dL Hct 29.2 L (34.0-46.0) % MCHC 30.9 L (31.0-37.0) g/dL RDW 17.7 H (11.5-15.5) % Plt Count 481 H (150-450) k/uL Neutrophils # 8.7 H (1.3-7.7) k/uL Sodium 132 L (137-145) mmol/L Potassium 2.9 L (3.5-5.1) mmol/L Chloride 89 L (98-107) mmol/L Anion Gap (4.00-12.00) mmol/L BUN 27 H (7-17) mg/dL BUN/Creatinine Ratio (12.00-20.00) Ratio Glucose 101 H (74-99) mg/dL Urine Appearance Turbid H (Clear) Ur Specific [place] 1.040 H (1.001-1.035) Urine Protein 1+ H (Negative) Urine Ketones 1+ H (Negative) Urine Blood Moderate H (Negative) Ur Leukocyte Esterase Large H (Negative) Urine RBC 67 H (0-5) /hpf Urine WBC 15 H (0-5) /hpf Uric Acid Crystals Occasional H (None) /hpf Urine Mucus Rare H (None) /hpf 12/22/22 Range/Units 05:33 WBC (3.8-10.6) k/uL RBC (3.80-5.40) m/uL Hgb (11.4-16.0) gm/dL Hct (34.0-46.0) % MCHC (31.0-37.0) g/dL RDW (11.5-15.5) % Plt Count (150-450) k/uL Neutrophils # (1.3-7.7) k/uL Sodium (137-145) mmol/L Potassium (3.5-5.1) mmol/L Chloride 92 L (98-107) mmol/L Anion Gap 15.50 H (4.00-12.00) mmol/L BUN (7-17) mg/dL BUN/Creatinine Ratio 28.12 H (12.00-20.00) Ratio Glucose (74-99) mg/dL Urine Appearance (Clear) Ur Specific [place] (1.001-1.035) Urine Protein (Negative) Urine Ketones (Negative) Urine Blood (Negative) Ur Leukocyte Esterase (Negative) Urine RBC (0-5) /hpf Urine WBC (0-5) /hpf Uric Acid Crystals (None) /hpf Urine Mucus (None) /hpf Microbiology - Last 24 Hours (Table) 12/20/22 04:20 Blood Culture - Preliminary Blood 12/20/22 04:01 Blood Culture Gram Stain - Preliminary Blood Blood Culture - Preliminary Gram Neg Bacilli
--- NOTE | 2022-12-22 15:57 | US ---
Ultrasound-guided paracentesis. DATE OF EXAM: 12/22/2022 CLINICAL HISTORY: Ascites The procedure was discussed with the patient. The risks, complications, benefits, and alternatives we re discussed and any questions were answered. Informed consent was obtained. The patient was placed s upine on the ultrasound table and prepped and draped in the usual sterile fashion. All elements of maximal barrier technique were utilized. Under ultrasound guidance, access into the right lower quadrant was obtained, via the paracentesis catheter system and direct ultrasound guidanc e. Approximately 1.5 liters of straw-colored fluid was removed. The patient was stable throughout the pr ocedure and remained stable upon discharge from Department of Radiology. IMPRESSION: Successful paracentesis under ultrasound guidance.
--- NOTE | 2022-12-22 16:17 | P.PN ---
Subjective Progress Note Date: 12/22/22 Principal diagnosis: dehydration, n/v At today's visit patient is resting comfortably in bed. She reports no changes in symptoms. Reports persisting nausea and spitting up saliva, no acute vomiting.Using zofran with improvement in sx. Patient remains afebrile, continues on antibiotics. Objective - Vital Signs Vital signs: Vital Signs Temp 97.7 F 12/22/22 12:59 Pulse 109 H 12/22/22 14:10 Resp 16 12/22/22 14:10 BP 109/71 12/22/22 14:10 Pulse Ox 99 12/22/22 14:10 FiO2 Intake & Output 12/21/22 12/22/22 12/22/22 18:59 06:59 18:59 Output Total 350 Balance -350 Weight 72.575 kg Output: Urine 350 Other: Voiding Method Indwelling Catheter Indwelling Catheter Indwelling Catheter # Voids 100 - Constitutional General appearance: Present: average body habitus, no acute distress - EENT Eyes: Present: anicteric sclerae, EOMI ENT: Present: hearing grossly normal - Respiratory Details: breathing is even and unlabored - Cardiovascular Details: skin warm and dry - Gastrointestinal General gastrointestinal: Present: distended, tenderness Localized gastrointestinal: tender: epigastric periumbilical - Integumentary Integumentary: Absent: cyanotic, jaundiced - Neurologic Neurologic: Present: CNII-XII intact - Musculoskeletal Musculoskeletal: Present: generalized weakness - Psychiatric Psychiatric: Present: A&O x's 3, appropriate affect, intact judgment & insight - Labs CBC & Chem 7: 12/21/22 11:50 12/22/22 05:33 Labs: Abnormal Lab Results - Last 24 Hours (Table) 12/21/22 12/22/22 Range/Units 17:24 05:33 Chloride 92 L (96-109) mmol/L Anion Gap 15.50 H (4.00-12.00) mmol/L BUN/Creatinine Ratio 28.12 H (12.00-20.00) Ratio Urine Appearance Turbid H (Clear) Ur Specific [place] 1.040 H (1.001-1.035) Urine Protein 1+ H (Negative) Urine Ketones 1+ H (Negative) Urine Blood Moderate H (Negative) Ur Leukocyte Esterase Large H (Negative) Urine RBC 67 H (0-5) /hpf Urine WBC 15 H (0-5) /hpf Uric Acid Crystals Occasional H (None) /hpf Urine Mucus Rare H (None) /hpf Microbiology - Last 24 Hours (Table) 12/20/22 04:01 Blood Culture Gram Stain - Final Blood Blood Culture - Final Escherichia coli 12/20/22 04:20 Blood Culture - Preliminary Blood - Imaging and Cardiology US - abdomen: report reviewed Assessment and Plan (1) Altered mental status Current Visit: Yes Status: Acute Priority: High Code(s): R41.82 - ALTERED MENTAL STATUS, UNSPECIFIED SNOMED Code(s): 138123524 (2) Ascites Current Visit: Yes Status: Acute Priority: High Code(s): R18.8 - OTHER ASCITES SNOMED Code(s): 135986978 (3) Dehydration Current Visit: Yes Status: Acute Priority: High Code(s): E86.0 - DEHYDRATION SNOMED Code(s): 74306040 Plan: Altered mental status: -The patient has been having multiple progressive symptoms. She was supposed to follow-up with Dr Tomlinson in the office, but the current hospital visit was facilitated by the change in mental status over the last 1-2 days prior to admission. Her family member stated that they were concerned that she was developing a UTI. Mentation improved since admission. - Patient's x-rays showed possibility of a small pneumonia in the left lower lobe. She has not been able to void, and nursing was therefore asked to place a Workman catheter, UA suspicious for UTI, culture pending -Blood culture positive for gram neg bacilli. Continues on abx, ID following - Monitor with ongoing hydration and treatment for infection Dehydration: -Intake has been significantly diminished, and has not improved since stopping chemotherapy. Could be due to persistent chemotherapy effect, but is more likely due to recurrent ascites and diminished bowel function. Abdominal x-ray revealed nonspecific abdomen without evidence of free air or obstruction - Continue IV hydration and anti-emetics as needed Ascites: -Appears to be recurrent by clinical exam. This could definitely be contributing to her symptoms. -Abdominal ultrasound revealed loculated ascites within all 4 abdominal quadrants -IR consult placed for US guided paracentesis. Cytology/fluid analysis ordered Plan: Treatment for ovarian cancer is currently on hold due to progressive side effects from the prior regimen. Follow-up with Dr. Tomlinson after discharge to discuss the next step in treatment
--- NOTE | 2022-12-22 16:47 | P.PN ---
Subjective Progress Note Date: 12/22/22 Principal diagnosis: E. coli bacteremia Patient is a 67-year-old female with a past medical history significant for ovarian cancer with recurrence on chemo with a right chest wall Mediport last chemo about 3 weeks before presentation to the hospital with weakness nausea and vomiting patient did have evidence of E. coli bacteremia. On today's evaluation that is 12/22/2022, the patient remains to be afebrile, the patient is breathing comfortably without need for supplemental oxygen , the patient denies chest pain and no significant cough, patient denies further nausea/vomiting /diarrhea and did have mild epigastric abdominal pain Patient white count of 11.1, creatinine 0.8 blood cultures with an E. coli Objective - Vital Signs Vital signs: Vital Signs Temp 97.5 F L 12/22/22 07:30 Pulse 110 H 12/22/22 08:00 Resp 17 12/22/22 07:30 BP 93/64 12/22/22 07:30 Pulse Ox 98 12/22/22 07:30 FiO2 Intake & Output 12/21/22 12/22/22 12/22/22 18:59 06:59 18:59 Output Total 350 Balance -350 Output: Urine 350 Other: Voiding Method Indwelling Catheter Indwelling Catheter Indwelling Catheter # Voids 100 - Exam GENERAL DESCRIPTION: An elderly female lying in bed in no distress RESPIRATORY SYSTEM: Unlabored breathing , decreased breath sounds at bases HEART: S1 S2 regular rate and rhythm , ABDOMEN: Soft , mild epigastric tenderness EXTREMITIES: No edema feet - Labs CBC & Chem 7: 12/21/22 11:50 12/22/22 05:33 Labs: Abnormal Lab Results - Last 24 Hours (Table) 12/21/22 12/22/22 Range/Units 17:24 05:33 Chloride 92 L (96-109) mmol/L Anion Gap 15.50 H (4.00-12.00) mmol/L BUN/Creatinine Ratio 28.12 H (12.00-20.00) Ratio Urine Appearance Turbid H (Clear) Ur Specific [place] 1.040 H (1.001-1.035) Urine Protein 1+ H (Negative) Urine Ketones 1+ H (Negative) Urine Blood Moderate H (Negative) Ur Leukocyte Esterase Large H (Negative) Urine RBC 67 H (0-5) /hpf Urine WBC 15 H (0-5) /hpf Uric Acid Crystals Occasional H (None) /hpf Urine Mucus Rare H (None) /hpf Microbiology - Last 24 Hours (Table) 12/20/22 04:20 Blood Culture - Preliminary Blood 12/20/22 04:01 Blood Culture Gram Stain - Preliminary Blood Blood Culture - Preliminary Gram Neg Bacilli Assessment and Plan (1) E coli bacteremia Current Visit: Yes Status: Acute Code(s): R78.81 - BACTEREMIA; B96.20 - UNSP ESCHERICHIA COLI THE CAUSE OF DISEASES [facility] SNOMED Code(s): 447509299607 Plan: 1patient presented to hospital with weakness and mental status changes which is likely multifactorial in this patient with ovarian cancer on chemotherapy now with evidence of E. coli bacteremia source likely urinary however underlying abdominal source not entirely excluded has there was evidence of loculated abdominal fluid, may benefit from a CT for better definition of intra-abdominal pathology 2-patient to continue with Rocephin 2 g daily and monitor clinical course closely Dictation was produced using [employer] dictation software. please excuse any grammatical, word or spelling errors. Time with Patient: Less than 30
[2022-12-22 21:56] LABS: Appearance,BF Slightly Hazy (Clear)
[2022-12-23 00:36] LABS: Glucose, BF Source Ascites; Glucose, Body Fluid 8 mg/dL; T. Protein, Body Fluid Source Ascites; Total Protein, Body Fluid >3600 mg/dL
[2022-12-23] MEDS: SODIUM CHLORIDE 0.9% 1,000 ML IV SCH ×2 (05:12→20:14)
[2022-12-23 07:19] LABS: Anisocytosis Slight; HCT 31.2 % (34.0-46.0); Hypochromasia Marked; MCH 26.6 pg (25.0-35.0); Mean Platelet Volume 7.6; Platelet Count 428 k/uL (150-450); RDW 17.7 % (11.5-15.5); WBC 9.2 k/uL (3.8-10.6)
[2022-12-23 07:27] LABS: MCV 91.6 fL (80.0-100.0)
[2022-12-23 09:00] LABS: ALT 9 U/L (8-44); AST 14 U/L (13-35); Albumin 2.5 d/dL (3.8-4.9); Albumin/Globulin Ratio 1.04 Ratio (1.60-3.17); Alkaline Phosphatase 81 U/L (41-126); BUN/Creat Ratio 23.29 Ratio (12.00-20.00); Blood Urea Nitrogen 16.3 mg/dL (9.0-27.0); Carbon Dioxide 28.5 mmol/L (21.6-31.8); Chloride 96 mmol/L (96-109); Globulin 2.4 d/dL (1.6-3.3); Glucose 77 mg/dL (70-110); Potassium 3.9 mmol/L (3.5-5.5); Sodium 137 mmol/L (135-145); Total Bilirubin <0.2 mg/dL (0.3-1.2); Total Protein 4.9 d/dL (6.2-8.2)
--- NOTE | 2022-12-23 12:03 | P.PN ---
Subjective Progress Note Date: 12/23/22 Principal diagnosis: E. coli bacteremia Patient is a 67-year-old female with a past medical history significant for ovarian cancer with recurrence on chemo with a right chest wall Mediport last chemo about 3 weeks before presentation to the hospital with weakness nausea and vomiting patient did have evidence of E. coli bacteremia. Patient is status post paracentesis completed on 12/22/2022 On today's evaluation that is 12/23/2022, the patient continues to be afebrile, the patient is breathing on room air, the patient denies chest pain and no cough, patient denies abdominal pain, no nausea/vomiting /diarrhea Patient white count normalized to 9.2, creatinine 0.7, blood cultures with an E. coli urine cultures with the Agustina, paracentesis fluid is currently pending Objective - Vital Signs Vital signs: Vital Signs Temp 97.5 F L 12/23/22 07:06 Pulse 109 H 12/23/22 08:00 Resp 17 12/23/22 07:06 BP 94/60 12/23/22 07:06 Pulse Ox 100 12/23/22 07:06 FiO2 Intake & Output 12/22/22 12/23/22 12/23/22 18:59 06:59 18:59 Output Total 400 500 Balance -400 -500 Weight 72.575 kg Output: Urine 400 500 Other: Voiding Method Indwelling Catheter Indwelling Catheter Indwelling Catheter - Exam GENERAL DESCRIPTION: An elderly female lying in bed in no distress RESPIRATORY SYSTEM: Unlabored breathing , decreased breath sounds at bases HEART: S1 S2 regular rate and rhythm , ABDOMEN: Soft , mild epigastric tenderness EXTREMITIES: No edema feet - Labs CBC & Chem 7: 12/23/22 05:33 12/23/22 05:33 Labs: Abnormal Lab Results - Last 24 Hours (Table) 12/22/22 12/23/22 12/23/22 Range/Units 13:50 05:33 05:33 RBC 3.40 L (3.80-5.40) m/uL Hgb 9.0 L (11.4-16.0) gm/dL Hct 31.2 L (34.0-46.0) % MCHC 29.0 L (31.0-37.0) g/dL RDW 17.7 H (11.5-15.5) % Anion Gap 12.50 H (4.00-12.00) mmol/L BUN/Creatinine Ratio 23.29 H (12.00-20.00) Ratio Calcium 8.0 L (8.7-10.3) mg/dL Total Bilirubin <0.2 L (0.3-1.2) mg/dL Total Protein 4.9 L (6.2-8.2) d/dL Albumin 2.5 L (3.8-4.9) d/dL Albumin/Globulin Ratio 1.04 L (1.60-3.17) Ratio Fluid Appearance Slightly Hazy A (Clear) Microbiology - Last 24 Hours (Table) 12/21/22 17:24 Urine Culture - Final Urine,Voided Agustina albicans 12/20/22 04:01 Blood Culture Gram Stain - Final Blood Blood Culture - Final Escherichia coli 12/20/22 04:20 Blood Culture - Preliminary Blood Assessment and Plan (1) E coli bacteremia Current Visit: Yes Status: Acute Code(s): R78.81 - BACTEREMIA; B96.20 - UNSP ESCHERICHIA COLI THE CAUSE OF DISEASES CLASSD [facility] SNOMED Code(s): 347533365807 Plan: 1patient presented to hospital with weakness and mental status changes which is likely multifactorial in this patient with ovarian cancer on chemotherapy now with evidence of E. coli bacteremia source likely abdominal as there was evidence of a large ascites and some loculated fluid status post CT-guided drainage cultures are currently pending 2-patient to continue with Rocephin 2 g daily while waiting for the abdominal fluid to be finalize Dictation was produced using [employer] dictation software. please excuse any grammatical, word or spelling errors. Time with Patient: Less than 30
--- NOTE | 2022-12-23 12:22 | P.PN ---
Subjective Progress Note Date: 12/23/22 Principal diagnosis: dehydration, n/v At today's visit patient reports improvement in symptoms. Patient reports that she is no longer getting up saliva as previously noted as well as improvement in abdominal discomfort s/p paracentesis yesterday. 1.5 L removed, cytology and cu lture pending. Patient reports she is tolerating some oral intake. Blood culture positive for Escherichia coli, continues on Rocephin. ID following Upon leaving the room, primary RN stated the patient has had episodes of vomiting over the last 1 day but has denied Zofran Objective - Vital Signs Vital signs: Vital Signs Temp 97.5 F L 12/23/22 07:06 Pulse 109 H 12/23/22 08:00 Resp 17 12/23/22 07:06 BP 94/60 12/23/22 07:06 Pulse Ox 100 12/23/22 07:06 FiO2 Intake & Output 12/22/22 12/23/22 12/23/22 18:59 06:59 18:59 Output Total 400 500 Balance -400 -500 Weight 72.575 kg Output: Urine 400 500 Other: Voiding Method Indwelling Catheter Indwelling Catheter Indwelling Catheter - Constitutional General appearance: Present: average body habitus, no acute distress - EENT Eyes: Present: anicteric sclerae, EOMI ENT: Present: hearing grossly normal - Respiratory Details: breathing even and unlabored - Cardiovascular Details: skin warm and dry - Gastrointestinal Gastrointestinal Comment(s): abdominal distention improved, no tenderness upon palpation - Integumentary Integumentary: Absent: cyanotic, jaundiced - Neurologic Neurologic Comment(s): grossly intact - Musculoskeletal Musculoskeletal: Present: strength equal bilaterally - Psychiatric Psychiatric: Present: A&O x's 3, appropriate affect, intact judgment & insight - Labs CBC & Chem 7: 12/23/22 05:33 12/23/22 05:33 Labs: Abnormal Lab Results - Last 24 Hours (Table) 12/22/22 12/23/22 12/23/22 Range/Units 13:50 05:33 05:33 RBC 3.40 L (3.80-5.40) m/uL Hgb 9.0 L (11.4-16.0) gm/dL Hct 31.2 L (34.0-46.0) % MCHC 29.0 L (31.0-37.0) g/dL RDW 17.7 H (11.5-15.5) % Anion Gap 12.50 H (4.00-12.00) mmol/L BUN/Creatinine Ratio 23.29 H (12.00-20.00) Ratio Calcium 8.0 L (8.7-10.3) mg/dL Total Bilirubin <0.2 L (0.3-1.2) mg/dL Total Protein 4.9 L (6.2-8.2) d/dL Albumin 2.5 L (3.8-4.9) d/dL Albumin/Globulin Ratio 1.04 L (1.60-3.17) Ratio Fluid Appearance Slightly Hazy A (Clear) Microbiology - Last 24 Hours (Table) 12/21/22 17:24 Urine Culture - Final Urine,Voided Agustina albicans 12/20/22 04:01 Blood Culture Gram Stain - Final Blood Blood Culture - Final Escherichia coli 12/20/22 04:20 Blood Culture - Preliminary Blood - Imaging and Cardiology US - abdomen: report reviewed Assessment and Plan (1) Altered mental status Current Visit: Yes Status: Acute Priority: High Code(s): R41.82 - ALTERED MENTAL STATUS, UNSPECIFIED SNOMED Code(s): 783239518 (2) Ascites Current Visit: Yes Status: Acute Priority: High Code(s): R18.8 - OTHER ASCITES SNOMED Code(s): 206859605 (3) Dehydration Current Visit: Yes Status: Acute Priority: High Code(s): E86.0 - DEHYDRATION SNOMED Code(s): 81128205 Plan: Altered mental status: -The patient has been having multiple progressive symptoms. She was supposed to follow-up with Dr Tomlinson in the office, but the current hospital visit was facilitated by the change in mental status over the last 1-2 days prior to admission. Her family member stated that they were concerned that she was developing a UTI. Mentation improved since admission. - Patient's x-rays showed possibility of a small pneumonia in the left lower lobe. She has not been able to void, and nursing was therefore asked to place a Workman catheter, UA suspicious for UTI, culture positive for agustina albicans -Blood culture positive for E. coli, continues on rocephin. Fluid culture from para pending. ID following - Monitor with ongoing hydration and treatment for infection Dehydration: -Intake has been significantly diminished, and has not improved since stopping chemotherapy. Could be due to persistent chemotherapy effect, but is more likely due to recurrent ascites and diminished bowel function. Abdominal x-ray revealed nonspecific abdomen without evidence of free air or obstruction -Patient reports improvement in symptoms of nausea/vomiting and is reporting oral intake but is still somewhat decreased. However, her primary RN reports patient has been still experiencing episodes of vomiting but has refused Zofran. -Continue IV hydration and encourage anti-emetics as needed -Encouraged increasing oral intake as tolerated Ascites: -Appears to be recurrent by clinical exam. This could definitely be contributing to her symptoms. -Abdominal ultrasound revealed loculated ascites within all 4 abdominal quadrants -S/p paracentesis, 1.5L removed. Reports improvement in symptoms. Cytology/culture pending Plan: Treatment for ovarian cancer is currently on hold due to progressive side effects from the prior regimen. Follow-up with Dr. Tomlinson after discharge to discuss the next step in treatment
[2022-12-23] MEDS: HYDROcodone/APAP 7.5-325MG 1 EACH TAB PO PRN (20:12)
[2022-12-24] MEDS: SODIUM CHLORIDE 0.9% 1,000 ML IV SCH ×2 (10:24→20:24)
--- NOTE | 2022-12-24 14:57 | P.PN ---
Subjective Progress Note Date: 12/24/22 Principal diagnosis: E. coli bacteremia Patient is a 67-year-old female with a past medical history significant for ovarian cancer with recurrence on chemo with a right chest wall Mediport last chemo about 3 weeks before presentation to the hospital with weakness nausea and vomiting patient did have evidence of E. coli bacteremia. Patient is status post paracentesis completed on 12/22/2022 On today's evaluation that is 12/24/2022, the patient remains to be afebrile, the patient is breathing comfortably on room air , the patient denies chest pain shortness of breath or cough, patient denies nausea/vomiting /diarrhea and and abdominal pain has decreased in intensity Patient white count normalized to 9.2, creatinine 0.7 as of yesterday no lab draw today, blood cultures with an E. coli urine cultures with the Agustina, paracentesis fluid is currently pending Objective - Vital Signs Vital signs: Vital Signs Temp 98.4 F 12/24/22 07:24 Pulse 95 12/24/22 07:24 Resp 18 12/24/22 07:24 BP 89/59 12/24/22 07:24 Pulse Ox 99 12/24/22 07:24 FiO2 Intake & Output 12/23/22 12/24/22 12/24/22 18:59 06:59 18:59 Output Total 150 250 Balance -150 -250 Output: Urine 150 250 Other: Voiding Method Indwelling Catheter Indwelling Catheter # Bowel Movements 5 - Exam GENERAL DESCRIPTION: An elderly female lying in bed in no distress RESPIRATORY SYSTEM: Unlabored breathing , decreased breath sounds at bases HEART: S1 S2 regular rate and rhythm , ABDOMEN: Soft , mild epigastric tenderness EXTREMITIES: No edema feet - Labs CBC & Chem 7: 12/23/22 05:33 12/23/22 05:33 Labs: Microbiology - Last 24 Hours (Table) 12/22/22 13:50 Gram Stain - Preliminary Ascites Fluid Body Fluid Culture - Preliminary 12/20/22 04:20 Blood Culture - Preliminary Blood Assessment and Plan (1) E coli bacteremia Current Visit: Yes Status: Acute Code(s): R78.81 - BACTEREMIA; B96.20 - UNSP ESCHERICHIA COLI THE CAUSE OF DISEASES CLASSD [facility] SNOMED Code(s): 091015682843 Plan: 1patient presented to hospital with weakness and mental status changes which is likely multifactorial in this patient with ovarian cancer on chemotherapy now with evidence of E. coli bacteremia source likely abdominal as there was evidence of a large ascites and some loculated fluid status post CT-guided drainage cultures are currently pending 2-patient has shown some clinical improvement and will continue with Rocephin 2 g daily while waiting for the abdominal fluid to be finalize Dictation was produced using [employer] dictation software. please excuse any grammatical, word or spelling errors. Time with Patient: Less than 30
[2022-12-24] MEDS: CALCIUM CARBONATE 500 MG CHEWABLE PO PRN (18:27)
[2022-12-24] MEDS: HYDROcodone/APAP 7.5-325MG 1 EACH TAB PO PRN (18:27)
--- NOTE | 2022-12-25 00:20 | P.PN ---
Subjective Progress Note Date: 12/23/22 67-year-old woman with history of metastatic ovarian cancer who is here to have evaluation for changes in her mental status. The patient reportedly was receiving chemotherapy but states that it was "too strong for her, so it was stopped" over the past couple of weeks she has been taking less and less oral intake. She has not really had much in way of fluids for the past few days. Tonight she was becoming somewhat confused and disoriented so he brought her to have evaluation here. In addition, the patient has not been taking her home analgesics. Blood work completed in ED reveals a WBC of 13.1, hemoglobin of 10.1 and platelet count of 574, sodium 128, potassium 3.5, BUN/creatinine of 32/0.93, lactic acid level of 2.2 and troponin of 0.050 Chest x-ray reveals possible small left lower lobe pneumonia 12/21. Patient seen and examined. Patient not confused, answering appropriately, currently alert 3. Abdominal is distended 12/22. Patient seen and examined. Lab work done this morning showed sodium 137, potassium 4, BUN 22.5, creatinine 0.8. Patient going for paracentesis today 12/23/2022 Patient is currently resting in the bed. Awake alert and oriented x3. No complaints of chest pain or shortness of breath. No nausea vomiting abdominal pain or diarrhea. No cough or sputum production. Patient underwent paracentesis yesterday with 1.5 L fluid removal. Cultures are pending at this time. Blood cultures grew E. coli, 12/20/2022. Urine culture showed Agustina albicans. Patient is maintained on ceftriaxone. ID is on board. Laboratory data showed WBC 9.2 hemoglobin 9.0 and platelets 428 Sodium 137 potassium 3.9 chloride 96 bicarb is 28.5 BUN 16.[address] of the abdomen pelvis showed large amount of intra-abdominal ascites which f or the most part appears to be loculated. Infected ascites peritonitis should be excluded. Small bowel wall thickening which is nonspecific and could be related to infectious inflammatory or ischemic colitis. Correlate clinically. Current medications reviewed. REVIEW OF SYSTEMS: CONSTITUTIONAL: No fever, no malaise,. CARDIOVASCULAR: No chest pain, no palpitations, no syncope. PULMONARY: No shortness of breath, no cough, GASTROINTESTINAL: No diarrhea, no nausea, no vomiting, no abdominal pain. NEUROLOGICAL: No headaches, no weakness, PHYSICAL EXAMINATION: GENERAL: The patient is alert and oriented x3, not in any acute distress. Well developed, well nourished. HEENT: Pupils are round and equally reacting to light. EOMI. No scleral icterus. No conjunctival pallor. Normocephalic, atraumatic. No pharyngeal erythema. No thyromegaly. CARDIOVASCULAR: S1 and S2 present. No murmurs, rubs, or gallops. PULMONARY: Chest is clear to auscultation, no wheezing or crackles. ABDOMEN: Distended, normoactive bowel sounds. No palpable organomegaly. MUSCULOSKELETAL: No joint swelling or deformity. EXTREMITIES: No cyanosis, clubbing, or pedal edema. NEUROLOGICAL: Gross neurological examination did not reveal any focal deficits. SKIN: No rashes. Assessment and plan E. coli Bacteremia Likely abdominal source. Status post paracentesis. Fluid cultures pending. Sepsis Acute infectious encephalopathy Acute kidney injury Lactic acidosis Ascites Bacterial pneumonia Metastatic ovarian cancer Monitor vital signs Monitor CBC Monitor CMP Continue telemetry monitoring CTA chest negative for PE, shows small left pleural effusions. Follow-up on blood cultures, blood culture growing E. coli Continue IV Rocephin Abdominal ultrasound showed loculated ascites in all 4 quadrants, IR consulted Follow-up on hematology oncology recommendations Follow-up in ID recommendations, Labs and medication were reviewed.. Continue same treatment. Continue with symptomatic treatment. Resume home medication. Monitor labs and vitals. DVT and GI prophylaxis. Further recommendations as per clinical course of the patient Objective - Vital Signs Vital signs: Vital Signs Temp 98.4 F 12/23/22 19:11 Pulse 95 12/23/22 19:11 Resp 18 12/23/22 19:11 BP 97/63 12/23/22 19:11 Pulse Ox 95 12/23/22 19:11 FiO2 Intake & Output 12/23/22 12/23/22 12/24/22 06:59 18:59 06:59 Output Total 500 150 Balance -500 -150 Output: Urine 500 150 Other: Voiding Method Indwelling Catheter Indwelling Catheter # Bowel Movements 5 - Labs CBC & Chem 7: 12/23/22 05:33 12/23/22 05:33 Labs: Abnormal Lab Results - Last 24 Hours (Table) 12/22/22 12/23/22 12/23/22 Range/Units 13:50 05:33 05:33 RBC 3.40 L (3.80-5.40) m/uL Hgb 9.0 L (11.4-16.0) gm/dL Hct 31.2 L (34.0-46.0) % MCHC 29.0 L (31.0-37.0) g/dL RDW 17.7 H (11.5-15.5) % Anion Gap 12.50 H (4.00-12.00) mmol/L BUN/Creatinine Ratio 23.29 H (12.00-20.00) Ratio Calcium 8.0 L (8.7-10.3) mg/dL Total Bilirubin <0.2 L (0.3-1.2) mg/dL Total Protein 4.9 L (6.2-8.2) d/dL Albumin 2.5 L (3.8-4.9) d/dL Albumin/Globulin Ratio 1.04 L (1.60-3.17) Ratio Fluid Appearance Slightly Hazy A (Clear) Microbiology - Last 24 Hours (Table) 12/22/22 13:50 Gram Stain - Preliminary Ascites Fluid Body Fluid Culture - Preliminary 12/20/22 04:20 Blood Culture - Preliminary Blood 12/21/22 17:24 Urine Culture - Final Urine,Voided Agustina albicans Assessment and Plan Time with Patient: Greater than 30
--- NOTE | 2022-12-25 00:22 | P.PN ---
Subjective Progress Note Date: 12/24/22 67-year-old woman with history of metastatic ovarian cancer who is here to have evaluation for changes in her mental status. The patient reportedly was receiving chemotherapy but states that it was "too strong for her, so it was stopped" over the past couple of weeks she has been taking less and less oral intake. She has not really had much in way of fluids for the past few days. Tonight she was becoming somewhat confused and disoriented so he brought her to have evaluation here. In addition, the patient has not been taking her home analgesics. Blood work completed in ED reveals a WBC of 13.1, hemoglobin of 10.1 and platelet count of 574, sodium 128, potassium 3.5, BUN/creatinine of 32/0.93, lactic acid level of 2.2 and troponin of 0.050 Chest x-ray reveals possible small left lower lobe pneumonia 12/21. Patient seen and examined. Patient not confused, answering appropriately, currently alert 3. Abdominal is distended 12/22. Patient seen and examined. Lab work done this morning showed sodium 137, potassium 4, BUN 22.5, creatinine 0.8. Patient going for paracentesis today 12/23/2022 Patient is currently resting in the bed. Awake alert and oriented x3. No complaints of chest pain or shortness of breath. No nausea vomiting abdominal pain or diarrhea. No cough or sputum production. Patient underwent paracentesis yesterday with 1.5 L fluid removal. Cultures are pending at this time. Blood cultures grew E. coli, 12/20/2022. Urine culture showed Agustina albicans. Patient is maintained on ceftriaxone. ID is on board. Laboratory data showed WBC 9.2 hemoglobin 9.0 and platelets 428 Sodium 137 potassium 3.9 chloride 96 bicarb is 28.5 BUN 16.[address] of the abdomen pelvis showed large amount of intra-abdominal ascites which for the most part appears to be loculated. Infected ascites peritonitis should be excluded. Small bowel wall thickening which is nonspecific and could be related to infectious inflammatory or ischemic colitis. Correlate clinically. 12/24/2022 Patient is currently sitting on the side of the bed. Awake alert and oriented x3. No complaints of chest pain or shortness of breath. Patient is currently on room air. Abdominal pain is better. No cough or sputum production. Ascites fluid culture is pending. No nausea vomiting or diarrhea. Laboratory data reviewed. Current medications reviewed. REVIEW OF SYSTEMS: CONSTITUTIONAL: No fever, no malaise,. CARDIOVASCULAR: No chest pain, no palpitations, no syncope. PULMONARY: No shortness of breath, no cough, GASTROINTESTINAL: No diarrhea, no nausea, no vomiting, no abdominal pain. NEUROLOGICAL: No headaches, no weakness, PHYSICAL EXAMINATION: GENERAL: The patient is alert and oriented x3, not in any acute distress. Well developed, well nourished. HEENT: Pupils are round and equally reacting to light. EOMI. No scleral icterus. No conjunctival pallor. Normocephalic, atraumatic. No pharyngeal erythema. No thyromegaly. CARDIOVASCULAR: S1 and S2 present. No murmurs, rubs, or gallops. PULMONARY: Chest is clear to auscultation, no wheezing or crackles. ABDOMEN: Distended, normoactive bowel sounds. No palpable organomegaly. MUSCULOSKELETAL: No joint swelling or deformity. EXTREMITIES: No cyanosis, clubbing, or pedal edema. NEUROLOGICAL: Gross neurological examination did not reveal any focal deficits. SKIN: No rashes. Assessment and plan E. coli Bacteremia Likely abdominal source. Status post paracentesis. Fluid cultures pending. Sepsis Acute infectious encephalopathy Acute kidney injury Lactic acidosis Ascites Bacterial pneumonia Metastatic ovarian cancer Monitor vital signs Monitor CBC Monitor CMP Continue telemetry monitoring CTA chest negative for PE, shows small left pleural effusions. Follow-up on blood cultures, blood culture growing E. coli Continue IV Rocephin Abdominal ultrasound showed loculated ascites in all 4 quadrants, IR consulted Follow-up on hematology oncology recommendations Follow-up in ID recommendations, Labs and medication were reviewed.. Continue same treatment. Continue with symptomatic treatment. Resume home medication. Monitor labs and vitals. DVT and GI prophylaxis. Further recommendations as per clinical course of the patient Objective - Vital Signs Vital signs: Vital Signs Temp 98.6 F 12/24/22 13:28 Pulse 94 12/24/22 13:28 Resp 17 12/24/22 13:28 BP 87/54 12/24/22 13:28 Pulse Ox 100 12/24/22 13:28 FiO2 Intake & Output 12/23/22 12/24/22 12/24/22 18:59 06:59 18:59 Output Total 150 250 Balance -150 -250 Weight 72.575 kg Output: Urine 150 250 Other: Voiding Method Indwelling Catheter Indwelling Catheter # Voids 4 # Bowel Movements 5 - Labs CBC & Chem 7: 12/23/22 05:33 12/23/22 05:33 Labs: Microbiology - Last 24 Hours (Table) 12/22/22 13:50 Gram Stain - Preliminary Ascites Fluid Body Fluid Culture - Preliminary
[2022-12-25 09:05] LABS: Blood Urea Nitrogen 10.9 mg/dL (9.0-27.0); Calcium 8.2 mg/dL (8.7-10.3); Carbon Dioxide 26.2 mmol/L (21.6-31.8); Chloride 95 mmol/L (96-109); Glucose 93 mg/dL (70-110); Potassium 3.2 mmol/L (3.5-5.5); Sodium 133 mmol/L (135-145)
[2022-12-25 09:51] LABS: Basophils # (A) 0.02 X 10*3/uL (0.00-0.10); Basophils % (A) 0.2 %; Eosinophils # (A) 0.08 X 10*3/uL (0.04-0.35); Eosinophils % (A) 0.8 %; HCT 30.1 % (37.2-46.3); Lymphocytes # (A) 2.29 X 10*3/uL (0.90-5.00); Lymphocytes % (A) 23.2 %; MCH 25.3 pg (27.0-32.0); MCHC 29.9 d/dL (32.0-37.0); MCV 84.6 FL (80.0-97.0); Mean Platelet Volume 9.7 FL (9.5-12.2); Monocytes % (A) 8.1 %; NRBC Per 100 WBC 0 X 10*3/uL (0.00-0.01); Neutrophils # (A) 6.55 X 10*3/uL (1.80-7.70); Neutrophils % (A) 66.4 %; Platelet Count 427 X 10*3/uL (140-440); RBC 3.56 X 10*6/uL (4.10-5.20); RDW 18.7 % (11.5-14.5); WBC 9.87 X 10*3/uL (4.50-10.00)
[2022-12-25] MEDS ORDERED: Potassium Replacement Protocol 1 EACH MISC MISCELLANE PRN (10:01)
--- NOTE | 2022-12-25 10:26 | P.PN ---
Subjective Progress Note Date: 12/25/22 Principal diagnosis: E. coli bacteremia Patient is a 67-year-old female with a past medical history significant for ovarian cancer with recurrence on chemo with a right chest wall Mediport last chemo about 3 weeks before presentation to the hospital with weakness nausea and vomiting patient did have evidence of E. coli bacteremia. Patient is status post paracentesis completed on 12/22/2022 On today's evaluation that is 12/25/2022, the patient is afebrile, the patient is breathing comfortably on room air , the patient denies chest pain or cough, patient denies nausea/vomiting /diarrhea and the patient denies abdominal pain today Patient white count normalized to 9.87, creatinine 0.5, blood cultures with an E. coli urine cultures with the Agustina, paracentesis fluid is currently pending Objective - Vital Signs Vital signs: Vital Signs Temp 97.5 F L 12/25/22 07:15 Pulse 105 H 12/25/22 07:15 Resp 18 12/25/22 07:15 BP 90/60 12/25/22 07:15 Pulse Ox 99 12/25/22 07:15 FiO2 Intake & Output 12/24/22 12/25/22 12/25/22 18:59 06:59 18:59 Weight 72.575 kg Other: # Voids 4 3 - Exam GENERAL DESCRIPTION: An elderly female lying in bed in no distress RESPIRATORY SYSTEM: Unlabored breathing , decreased breath sounds at bases HEART: S1 S2 regular rate and rhythm , ABDOMEN: Soft , mild epigastric tenderness EXTREMITIES: No edema feet - Labs CBC & Chem 7: 12/25/22 06:01 12/25/22 06:01 Labs: Abnormal Lab Results - Last 24 Hours (Table) 12/25/22 12/25/22 Range/Units 06:01 06:01 RBC 3.56 L (4.10-5.20) X 10*6/uL Hgb 9.0 L (12.0-15.0) d/dL Hct 30.1 L (37.2-46.3) % MCH 25.3 L (27.0-32.0) pg MCHC 29.9 L (32.0-37.0) d/dL RDW 18.7 H (11.5-14.5) % Sodium 133 L (135-145) mmol/L Potassium 3.2 L (3.5-5.5) mmol/L Chloride 95 L (96-109) mmol/L Creatinine 0.5 L (0.6-1.5) mg/dL BUN/Creatinine Ratio 21.80 H (12.00-20.00) Ratio Calcium 8.2 L (8.7-10.3) mg/dL Microbiology - Last 24 Hours (Table) 12/22/22 13:50 Anaerobic Culture - Preliminary Ascites Fluid 12/22/22 13:50 Gram Stain - Preliminary Ascites Fluid Body Fluid Culture - Preliminary Assessment and Plan (1) E coli bacteremia Current Visit: Yes Status: Acute Code(s): R78.81 - BACTEREMIA; B96.20 - UNSP ESCHERICHIA COLI THE CAUSE OF DISEASES CLASSD [facility] SNOMED Code(s): 944069204850 Plan: 1patient presented to hospital with weakness and mental status changes which is likely multifactorial in this patient with ovarian cancer on chemotherapy now with evidence of E. coli bacteremia source likely abdominal as there was evidence of a large ascites and some loculated fluid status post CT-guided dr leija cultures are currently pending 2-patient has shown some clinical improvement, the patient white count is normalized 3-patient to continue with Rocephin 2 g daily while waiting for the abdominal fluid to be finalize and monitor clinical course closely Dictation was produced using [employer] dictation software. please excuse any grammatical, word or spelling errors. Time with Patient: Less than 30
--- NOTE | 2022-12-25 10:31 | P.PN ---
Subjective Progress Note Date: 12/24/22 Principal diagnosis: dehydration, n/v At today's visit patient reports improvement in symptoms. Patient reports one episode of nausea vomiting after breakfast. Denies nausea at this time. Also reports improvement in abdominal discomfort s/P paracentesis. continues on IV antibodies for bacteremia. ID following. Objective - Vital Signs Vital signs: Vital Signs Temp 98.6 F 12/24/22 13:28 Pulse 94 12/24/22 13:28 Resp 17 12/24/22 13:28 BP 87/54 12/24/22 13:28 Pulse Ox 100 12/24/22 13:28 FiO2 Intake & Output 12/23/22 12/24/22 12/24/22 18:59 06:59 18:59 Output Total 150 250 Balance -150 -250 Weight 72.575 kg Output: Urine 150 250 Other: Voiding Method Indwelling Catheter Indwelling Catheter # Voids 4 # Bowel Movements 5 - Constitutional General appearance: Present: average body habitus, no acute distress - EENT Eyes: Present: anicteric sclerae, EOMI ENT: Present: hearing grossly normal - Respiratory Details: breathing is even unlabored - Cardiovascular Details: skin warm and dry - Gastrointestinal General gastrointestinal: Present: distended. Absent: tenderness - Integumentary Integumentary: Absent: cyanotic, jaundiced - Musculoskeletal Musculoskeletal: Present: strength equal bilaterally - Psychiatric Psychiatric: Present: A&O x's 3, appropriate affect, intact judgment & insight - Labs CBC & Chem 7: 12/25/22 06:01 12/25/22 06:01 Labs: Microbiology - Last 24 Hours (Table) 12/22/22 13:50 Gram Stain - Preliminary Ascites Fluid Body Fluid Culture - Preliminary Assessment and Plan (1) Altered mental status Current Visit: Yes Status: Acute Priority: High Code(s): R41.82 - ALTERED MENTAL STATUS, UNSPECIFIED SNOMED Code(s): 679077517 (2) Ascites Current Visit: Yes Status: Acute Priority: High Code(s): R18.8 - OTHER ASCITES SNOMED Code(s): 243004198 (3) Dehydration Current Visit: Yes Status: Acute Priority: High Code(s): E86.0 - DEHYDRATION SNOMED Code(s): 21661764 Plan: Altered mental status: -The patient has been having multiple progressive symptoms. She was supposed to follow-up with Dr Tomlinson in the office, but the current hospital visit was facilitated by the change in mental status over the last 1-2 days prior to admission. Her family member stated that they were concerned that she was developing a UTI. Mentation improved since admission. - Patient's x-rays showed possibility of a small pneumonia in the left lower lobe. She has not been able to void, and nursing was therefore asked to place a Workman catheter, UA suspicious for UTI, culture positive for mirian albicans -Blood culture positive for E. coli, continues on rocephin. Fluid culture from para negative thus far. ID following - Monitor with ongoing hydration and treatment for infection Dehydration: -Intake has been significantly diminished, and has not improved since stopping chemotherapy. Could be due to persistent chemotherapy effect, but is more likely due to recurrent ascites and diminished bowel function. Abdominal x-ray revealed nonspecific abdomen without evidence of free air or obstruction -Patient reports improvement in symptoms of nausea/vomiting and is reporting oral intake but is still somewhat decreased. -Continue IV hydration and encourage anti-emetics as needed -Encouraged increasing oral intake as tolerated Ascites: -Appears to be recurrent by clinical exam. This could definitely be contributing to her symptoms. -Abdominal ultrasound revealed loculated ascites within all 4 abdominal quadrants -S/p paracentesis, 1.5L removed. Reports improvement in symptoms. Cytology pending -Standing paracentesis order has been placed Plan: Treatment for ovarian cancer is currently on hold due to progressive side effects from the prior regimen. Follow-up with Dr. Tomlinson after discharge to discuss the next step in treatment. F/u in discharge plan
[2022-12-25] MEDS: POTASSIUM CHLORIDE ER 20 MEQ TAB.ER PO SCH ×2 (11:06→12:22)
[2022-12-25] MEDS: SODIUM CHLORIDE 0.9% 1,000 ML IV SCH (11:06)
[2022-12-25] MEDS: CALCIUM CARBONATE 500 MG CHEWABLE PO PRN (13:49)
[2022-12-25] MEDS: PANTOPRAZOLE 40 MG TABLET PO SCH (14:57)
[2022-12-25] MEDS: HYDROcodone/APAP 7.5-325MG 1 EACH TAB PO PRN (18:06)
--- NOTE | 2022-12-25 22:05 | PN ---
PROGRESS NOTE DATE OF SERVICE: 12/25/2022 SUBJECTIVE: This is a 67-year-old woman with a past medical history of metastatic ovarian cancer, admitted with E coli bacteremia. The patient also had abdominal ascites. Paracentesis was done, but the final cultures are pending. The patient is being closely monitored. Multiple consultants are following the patient closely. The patient is on IV Rocephin at this time. PAST MEDICAL HISTORY: Reviewed. REVIEW OF SYSTEMS: A 14-point review is negative except as mentioned earlier. CURRENT MEDICATIONS: Reviewed. PHYSICAL EXAMINATION: VITAL SIGNS: Pulse is 105, blood pressure is 90/60, respirations 18. HEENT: Conjunctivae normal. NECK: No jugular venous distention. CARDIOVASCULAR: S1, S2. RESPIRATIONS: Diminished at the bases, few scattered rhonchi and crackles. ABDOMEN: Soft, ascites. LEGS: No edema, no swelling. NERVOUS SYSTEM: No focal deficit. LABORATORY DATA: Sodium 133, potassium 3.2. ASSESSMENT: 1. E coli bacteremia. 2. Metastatic ovarian cancer. 3. Ascites, status post thoracocentesis. 4. Relative hypotension. 5. History of DJD. 6. History of adenoidectomy. RECOMMENDATIONS: This 67-year-old woman presented with multiple complex medical issues, we will monitor the patient closely. Recommended to continue with IV antibiotics, also continue the rest of medication. DVT prophylaxis. I would also recommend serum cortisol evaluation. Continue with IV fluids. Repeat labs. Prognosis guarded. Further recommendations to follow. See orders for further details. MMODL / IJN: [id number] /
[2022-12-26] MEDS: SODIUM CHLORIDE 0.9% 1,000 ML IV SCH ×2 (01:32→16:22)
[2022-12-26] MEDS: PANTOPRAZOLE 40 MG TABLET PO SCH (08:05)
[2022-12-26 10:04] LABS: Blood Urea Nitrogen 8.6 mg/dL (9.0-27.0); Calcium 7.8 mg/dL (8.7-10.3); Chloride 100 mmol/L (96-109); Glucose 77 mg/dL (70-110); Potassium 3.7 mmol/L (3.5-5.5); Sodium 135 mmol/L (135-145)
[2022-12-26 11:09] LABS: Basophils # (A) 0.03 X 10*3/uL (0.00-0.10); Basophils % (A) 0.3 %; Eosinophils # (A) 0.06 X 10*3/uL (0.04-0.35); Eosinophils % (A) 0.7 %; HCT 27.2 % (37.2-46.3); HGB 8.2 d/dL (12.0-15.0); Lymphocytes # (A) 2.44 X 10*3/uL (0.90-5.00); Lymphocytes % (A) 28.4 %; MCH 25.4 pg (27.0-32.0); MCHC 30.1 d/dL (32.0-37.0); MCV 84.2 FL (80.0-97.0); Mean Platelet Volume 9.8 FL (9.5-12.2); Monocytes # (A) 0.81 X 10*3/uL (0.20-1.00); Monocytes % (A) 9.4 %; NRBC Per 100 WBC 0 X 10*3/uL (0.00-0.01); Neutrophils # (A) 5.17 X 10*3/uL (1.80-7.70); Neutrophils % (A) 60.2 %; Platelet Count 392 X 10*3/uL (140-440); RBC 3.23 X 10*6/uL (4.10-5.20); RBC Morphology Normal (Normal); RDW 18.9 % (11.5-14.5)
--- NOTE | 2022-12-26 11:32 | P.PN ---
Subjective Progress Note Date: 12/26/22 Principal diagnosis: E. coli bacteremia Patient is a 67-year-old female with a past medical history significant for ovarian cancer with recurrence on chemo with a right chest wall Mediport last chemo about 3 weeks before presentation to the hospital with weakness nausea and vomiting patient did have evidence of E. coli bacteremia. Patient is status post paracentesis completed on 12/22/2022 On today's evaluation that is 12/26/2022, the patient remains to be afebrile, the patient is breathing comfortably on room air without need for supplemental oxygen, the patient denies chest pain shortness of breath and no cough, patient denies nausea/vomiting /diarrhea, and denies any abdominal pain Patient white count is 8.60, creatinine 0.5, blood cultures with an E. coli urine cultures with the Agustina, paracentesis fluid is currently pending Objective - Vital Signs Vital signs: Vital Signs Temp 97.7 F 12/26/22 07:47 Pulse 105 H 12/26/22 07:47 Resp 18 12/26/22 07:47 BP 94/65 12/26/22 07:47 Pulse Ox 100 12/26/22 07:47 FiO2 Intake & Output 12/25/22 12/26/22 12/26/22 18:59 06:59 18:59 Other: Voiding Method Toilet # Voids 2 2 # Bowel Movements 0 - Exam GENERAL DESCRIPTION: An elderly female lying in bed in no distress RESPIRATORY SYSTEM: Unlabored breathing , decreased breath sounds at bases HEART: S1 S2 regular rate and rhythm , ABDOMEN: Soft , mild epigastric tenderness EXTREMITIES: No edema feet - Labs CBC & Chem 7: 12/26/22 06:32 12/26/22 06:32 Labs: Abnormal Lab Results - Last 24 Hours (Table) 12/25/22 12/26/22 Range/Units 14:13 06:32 BUN 8.6 L (9.0-27.0) mg/dL Creatinine 0.5 L (0.6-1.5) mg/dL Calcium 7.8 L (8.7-10.3) mg/dL Cortisol 31.9 H (3.1-22.4) UG/DL Microbiology - Last 24 Hours (Table) 12/22/22 13:50 Gram Stain - Preliminary Ascites Fluid Body Fluid Culture - Preliminary 12/20/22 04:20 Blood Culture - Final Blood Assessment and Plan (1) E coli bacteremia Current Visit: Yes Status: Acute Code(s): R78.81 - BACTEREMIA; B96.20 - UNSP ESCHERICHIA COLI [facility] Code(s): 247682910137 Plan: 1patient presented to hospital with weakness and mental status changes which is likely multifactorial in this patient with ovarian cancer on chemotherapy now with evidence of E. coli bacteremia source likely abdominal as there was evidence of a large ascites and some loculated fluid status post CT-guided drainage cultures are currently pending 2-patient has shown clinical improvement, the patient white count is normalized , we will continue with Rocephin 2 g daily while inpatient transient to oral antibiotics on discharge Dictation was produced using [employer] dictation software. please excuse any grammatical, word or spelling errors. Time with Patient: Less than 30
[2022-12-26] MEDS: CALCIUM CARBONATE 500 MG CHEWABLE PO PRN (19:42)
[2022-12-26] MEDS: HYDROcodone/APAP 7.5-325MG 1 EACH TAB PO PRN (19:42)
--- NOTE | 2022-12-26 22:02 | PN ---
PROGRESS NOTE DATE OF SERVICE: 12/26/2022 SUBJECTIVE: This is a 67-year-old woman with a past medical history of multiple medical problems, admitted with E coli bacteremia. No chest pain. No palpitation. Most recent cultures are negative. Urine showed Agustina. OBJECTIVE: VITAL SIGNS: Pulse is 105, blood pressure 94/60, respirations 18. CHEST: Clear to auscultation. CARDIOVASCULAR: S1, S2. ABDOMEN: Soft. Ascites present. LABORATORY DATA: Hemoglobin 8.2. The rest of the labs are noted. Serum cortisol is 31.9. ASSESSMENT: 1. Escherichia coli bacteremia. 2. Agustina from the urine. 3. Metastatic ovarian cancer. 4. Ascites, status post thoracentesis. 5. Relative hypotension, improved. 6. History of degenerative joint disease. 7. Gait dysfunction. 8. History of adenoidectomy. RECOMMENDATIONS: Recommend to continue current management and continue symptomatic treatment. Otherwise at this time, I would recommend repeat labs. Closely monitor. Guarded prognosis. Further recommendations to follow. MMODL / IJN: [id number] /
[2022-12-27] MEDS: SODIUM CHLORIDE 0.9% 1,000 ML IV SCH ×2 (03:47→18:06)
[2022-12-27] MEDS: PANTOPRAZOLE 40 MG TABLET PO SCH (08:23)
[2022-12-27 10:07] LABS: Basophils # (A) 0.04 X 10*3/uL (0.00-0.10); Basophils % (A) 0.5 %; Eosinophils # (A) 0.07 X 10*3/uL (0.04-0.35); HCT 26.7 % (37.2-46.3); Lymphocytes % (A) 27.4 %; MCH 25.2 pg (27.0-32.0); MCV 84.2 FL (80.0-97.0); Mean Platelet Volume 9.7 FL (9.5-12.2); Monocytes # (A) 0.93 X 10*3/uL (0.20-1.00); Monocytes % (A) 12.7 %; NRBC Per 100 WBC 0 X 10*3/uL (0.00-0.01); Neutrophils # (A) 4.18 X 10*3/uL (1.80-7.70); Neutrophils % (A) 57.3 %; Platelet Count 387 X 10*3/uL (140-440); RBC 3.17 X 10*6/uL (4.10-5.20)
[2022-12-27 10:19] LABS: Blood Urea Nitrogen 6.8 mg/dL (9.0-27.0); Calcium 7.7 mg/dL (8.7-10.3); Carbon Dioxide 23.5 mmol/L (21.6-31.8); Chloride 103 mmol/L (96-109); Glucose 83 mg/dL (70-110); Potassium 3.1 mmol/L (3.5-5.5); Sodium 138 mmol/L (135-145)
[2022-12-27] MEDS: POTASSIUM CHLORIDE ER 20 MEQ TAB.ER PO SCH ×2 (12:02→15:15)
--- NOTE | 2022-12-27 13:25 | P.PN ---
Subjective Progress Note Date: 12/27/22 Principal diagnosis: E. coli bacteremia Patient is a 67-year-old female with a past medical history significant for ovarian cancer with recurrence on chemo with a right chest wall Mediport last chemo about 3 weeks before presentation to the hospital with weakness nausea and vomiting patient did have evidence of E. coli bacteremia. Patient is status post paracentesis completed on 12/22/2022 On today's evaluation that is 12/27/2022, the patient continues to be afebrile, the patient is breathing comfortably on room air, the patient denies chest pain or cough, patient denies abdominal pain and no nausea/vomiting /diarrhea Patient white count is 7.30, creatinine 0.5, blood cultures with an E. coli urine cultures with the Agustina, paracentesis fluid cultures negative Objective - Vital Signs Vital signs: Vital Signs Temp 98.2 F 12/27/22 08:00 Pulse 114 H 12/27/22 08:00 Resp 17 12/27/22 08:00 BP 110/75 12/27/22 08:00 Pulse Ox 100 12/27/22 08:00 FiO2 Intake & Output 12/26/22 12/27/22 12/27/22 18:59 06:59 18:59 Intake Total 1700 Output Total 252 Balance 1700 -252 Intake: Intake, IV Titration 900 Amount Sodium Chloride 0.9% 1, 900 000 ml @ 75 mls/hr IV . [id number] Rx#:[id number] Oral 800 Output: Urine 252 Other: Voiding Method Toilet Toilet Toilet # Voids 3 3 # Bowel Movements 0 0 - Exam GENERAL DESCRIPTION: An elderly female lying in bed in no distress RESPIRATORY SYSTEM: Unlabored breathing , decreased breath sounds at bases HEART: S1 S2 regular rate and rhythm , ABDOMEN: Soft , mild epigastric tenderness EXTREMITIES: No edema feet - Labs CBC & Chem 7: 12/27/22 06:32 12/27/22 06:32 Labs: Abnormal Lab Results - Last 24 Hours (Table) 12/27/22 12/27/22 Range/Units 06:32 06:32 RBC 3.17 L (4.10-5.20) X 10*6/uL Hgb 8.0 L (12.0-15.0) d/dL Hct 26.7 L (37.2-46.3) % MCH 25.2 L (27.0-32.0) pg MCHC 30.0 L (32.0-37.0) d/dL RDW 19.0 H (11.5-14.5) % Potassium 3.1 L (3.5-5.5) mmol/L BUN 6.8 L (9.0-27.0) mg/dL Creatinine 0.5 L (0.6-1.5) mg/dL Calcium 7.7 L (8.7-10.3) mg/dL Microbiology - Last 24 Hours (Table) 12/22/22 13:50 Anaerobic Culture - Final Ascites Fluid 12/25/22 14:13 Blood Culture - Preliminary Blood 12/22/22 13:50 Gram Stain - Final Ascites Fluid Body Fluid Culture - Final Assessment and Plan (1) E coli bacteremia Current Visit: Yes Status: Acute Code(s): R78.81 - BACTEREMIA; B96.20 - UNSP ESCHERICHIA COLI THE CA[facility]ASES [facility] SNOMED Code(s): 102408018123 Plan: 1patient presented to hospital with weakness and mental status changes which is likely multifactorial in this patient with ovarian cancer on chemotherapy now with evidence of E. coli bacteremia source likely abdominal as there was evidence of a large ascites and some loculated fluid status post CT-guided drainage cultures are negative 2-patient has shown clinical improvement, the patient white count is normalized , we will continue with Rocephin 2 g daily and plan to finish therapy with oral Ceftin 10 days Dictation was produced using [employer] dictation software. please excuse any grammatical, word or spelling errors. Time with Patient: Less than 30
[2022-12-27] MEDS: CALCIUM CARBONATE 500 MG CHEWABLE PO PRN (19:16)
[2022-12-27] MEDS: HYDROcodone/APAP 7.5-325MG 1 EACH TAB PO PRN (19:16)
--- NOTE | 2022-12-27 21:41 | PN ---
PROGRESS NOTE DATE OF SERVICE: 12/27/2022 SUBJECTIVE: This is a 67-year-old woman who was admitted E. coli bacteremia and multiple other medical issues, being closely monitored. No chest pain or palpitations. No fever. OBJECTIVE: VITAL SIGNS: Pulse is 99, blood pressure 110/74, respirations 17. CHEST: A few scattered rhonchi. ABDOMEN: Soft. NERVOUS SYSTEM: Nonfocal. LABORATORY DATA: Hemoglobin 8. Rest of the labs are reviewed. ASSESSMENT: 1. Escherichia coli bacteremia. 2. Agustina from the urine. 3. Metastatic ovarian cancer. 4. Ascites, status post thoracocentesis. 5. Related hypotension, improved. 6. History of degenerative joint disease. 7. Gait dysfunction. 8. History of adenoidectomy. RECOMMENDATIONS: Recommend to continue current management. Continue symptomatic treatment. Otherwise obtain a potassium, potassium protocol, CBC, BMP. Guarded prognosis. Further recommendations to follow. MMODL / IJN: [id number] /
[2022-12-28] MEDS: SODIUM CHLORIDE 0.9% 1,000 ML IV SCH ×2 (06:13→13:17)
[2022-12-28] MEDS: PANTOPRAZOLE 40 MG TABLET PO SCH (08:05)
--- NOTE | 2022-12-28 12:23 | P.PN ---
Subjective Progress Note Date: 12/28/22 Principal diagnosis: dehydration, n/v At today's visit patient reports improvement in symptoms. Patient reports she is still experiencing intermittent nausea and is spitting up saliva. Denies nausea at this time. Also reports improvement in abdominal discomfort. Continues on IV antibodies for bacteremia. ID following. Objective - Vital Signs Vital signs: Vital Signs Temp 98.0 F 12/28/22 07:14 Pulse 109 H 12/28/22 08:05 Resp 16 12/28/22 07:14 BP 120/81 12/28/22 07:14 Pulse Ox 97 12/28/22 07:14 FiO2 Intake & Output 12/27/22 12/28/22 12/28/22 18:59 06:59 18:59 Output Total 2 Balance -2 Output: Emesis 2 Other: Voiding Method Toilet Toilet # Voids 2 2 # Bowel Movements 1 - Constitutional General appearance: Present: average body habitus, no acute distress - EENT Eyes: Present: anicteric sclerae, EOMI ENT: Present: hearing grossly normal - Respiratory Details: breathing is even and unlabored - Cardiovascular Details: skin warm and dry - Integumentary Integumentary: Absent: cyanotic, jaundiced - Neurologic Neurologic Comment(s): grossly intact - Musculoskeletal Musculoskeletal: Present: strength equal bilaterally - Psychiatric Psychiatric: Present: A&O x's 3, appropriate affect, intact judgment & insight - Labs CBC & Chem 7: 12/27/22 06:32 12/27/22 06:32 Labs: Microbiology - Last 24 Hours (Table) 12/25/22 14:13 Blood Culture - Preliminary Blood Assessment and Plan (1) Altered mental status Current Visit: Yes Status: Acute Priority: High Code(s): R41.82 - ALTERED MENTAL STATUS, UNSPECIFIED SNOMED Code(s): 391906403 (2) Ascites Current Visit: Yes Status: Acute Priority: High Code(s): R18.8 - OTHER ASCITES SNOMED Code(s): 712684345 (3) Dehydration Current Visit: Yes Status: Acute Priority: High Code(s): E86.0 - DEHYDRATION SNOMED Code(s): 49049599 Plan: Altered mental status: -The patient has been having multiple progressive symptoms. She was supposed to follow-up with Dr Tomlinson in the office, but the current hospital visit was facilitated by the change in mental status. Her family member stated that they were concerned that she was developing a UTI. Mentation improved to baseline since admission. - Patient's x-rays showed possibility of a small pneumonia in the left lower lobe. UA suspicious for UTI, culture positive for mirian albicans -Blood culture positive for E. coli, continues on rocephin with plans for ceftin upon d/c. Fluid culture from para negative. Repeat blood cultures negative thus far. ID following - Monitor with ongoing hydration and treatment for infection Dehydration: -Intake has been significantly diminished, and has not improved since stopping chemotherapy. Could be due to persistent chemotherapy effect, but is more likely due to recurrent ascites and diminished bowel function. Abdominal x-ray revealed nonspecific abdomen without evidence of free air or obstruction -Patient reports improvement in symptoms of nausea/vomiting and is reporting oral intake but is still somewhat decreased. -Continue IV hydration and encourage anti-emetics as needed -Encouraged increasing oral intake as tolerated Ascites: -Appears to be recurrent, could definitely be contributing to her symptoms. -Abdominal ultrasound revealed loculated ascites within all 4 abdominal quadrants -S/p paracentesis, 1.5L removed. Reports improvement in symptoms. Cytology positive for metastatic adenocarcinoma consistent with ovarian cancer primary. -Standing paracentesis order has been placed, pt will f/u with IR dept within the next 2 weeks Plan: Treatment for ovarian cancer is currently on hold due to progressive side effects from the prior regimen. At her last f/u pt had decided not to pursue active treatment, and is currently following up for observation and management of symptoms. Follow-up with Dr. Tomlinson in discharge plan. Pt updated on plan of care
--- NOTE | 2022-12-28 13:10 | US ---
EXAMINATION TYPE: US abdomen limited DATE OF EXAM: 12/28/2022 COMPARISON: 12/22/2022 CLINICAL INDICATION: Female, 67 years old with history of assess for possible paracentesis; ascites c heck Technique: Axial imaging of the abdomen for ascites. Findings: Very loculated ascites. Largest loculation measured at right lower quadrant 3.1x3.2cm IMPRESSION: Loculated ascites similar to prior's.
--- NOTE | 2022-12-28 15:34 | P.PN ---
Subjective Progress Note Date: 12/28/22 This is a pleasant 67-year-old female who was recently admitted with abdominal pain status post paracentesis with cultures growing E. coli bacteremia and being closely monitored. Patient is maintained on antibiotics with infectious disease following and will continue on Ceftin for a 10 day course. Patient continues to report some nausea with vomiting although reports is somewhat improved. Patient reports family at home are all positive for Covid and have been up and visiting her. Will test for Covid and is currently pending. Patient was evaluated by PT/OT therapy and plans on going home with family. Patient is currently afebrile with no reported chest pain or shortness of breath. Will obtain repeat abdominal ultrasound as patient is having some continued nausea with vomiting to assess for possible paracentesis. Review of systems: Constitutional: No reports of fatigue, fever, or chills Cardiovascular: No reports of chest pain or palpitations Respiratory: No reports of shortness of breath or cough GI: reports of nausea, reports of one episode of vomiting, not tolerating much oral intake although slightly improved : No reports of dysuria or retention Neurovascular: reports of generalized weakness All medications have been reviewed PHYSICAL EXAMINATION: GENERAL: The patient is alert and oriented x4, Well developed, thin built, elderly appearing HEENT: Pupils are round and equally reacting to light. EOMI. no scleral icterus. No conjunctival pallor. Normocephalic, atraumatic. No pharyngeal erythema. No thyromegaly. CARDIOVASCULAR: S1 and S2 muffled PULMONARY: diminished breath sounds bilaterally with no wheezing or rhonchi noted. ABDOMEN: soft. Nontender on exam. Mildly-distended, normoactive bowel sounds. No palpable organomegaly. MUSCULOSKELETAL: No joint swelling or deformity. EXTREMITIES: No cyanosis, clubbing, or pedal edema. NEUROLOGICAL: Gross neurological examination did not reveal any focal deficits. Diffuse weakness SKIN: No rashes. Assessment: E. coli bacteremia, present on admission Agustina from the urine Metastatic ovarian cancer Ascites, status post thoracentesis Relative hypotension, improved History of degenerative joint disease Gait dysfunction history of adenoidectomy GI prophylaxis DVT prophylaxis Full code Plan: Patient is continued on antibiotics and awaiting discharge planning to discuss with infectious disease and patient will likely continue on a 10 day course of Ceftin and close outpatient follow-up Oncology following as well and will follow-up in the outpatient setting Patient continues to have some intermittent nausea with an episode of vomiting although reports is tolerating more oral intake. Will obtain repeat abdominal ultrasound to assess for ascites and ultrasound showed a very loculated ascites and similar to previous exam. Patient is being set up for outpatient palliative paracentesis Patient reports her entire family in the home have Covid and have been up and visiting and patient did test positive for Covid today. Will initiate vitamin and zinc supplements Patient has been evaluated by physical therapy recommending home with home care and patient plans on returning home family. Plan is for possible discharge in 24 hours. The impression and plan of care has been dictated by Lissa Freedman, nurse practitioner as directed. Dr. Jose MD I have performed a history and examination and MDM of this patient, discussed the same with the dictator, and agree with the dictator's assessment and plan as written ,documented as a scribe. Based on total visit time, I have performed more than 50% of the visit. Any additional findings or plans will be noted. Objective - Vital Signs Vital signs: Vital Signs Temp 98.0 F 12/28/22 07:14 Pulse 109 H 12/28/22 08:05 Resp 16 12/28/22 07:14 BP 120/81 12/28/22 07:14 Pulse Ox 97 12/28/22 07:14 FiO2 Intake & Output 12/27/22 12/28/22 12/28/22 18:59 06:59 18:59 Output Total 2 Balance -2 Output: Emesis 2 Other: Voiding Method Toilet Toilet # Voids 2 2 # Bowel Movements 1 - Labs CBC & Chem 7: 12/27/22 06:32 12/27/22 06:32 Labs: Microbiology - Last 24 Hours (Table) 12/25/22 14:13 Blood Culture - Preliminary Blood
[2022-12-28 15:37] LABS: Basophils # (A) 0.03 X 10*3/uL (0.00-0.10); Basophils % (A) 0.5 %; Eosinophils # (A) 0.03 X 10*3/uL (0.04-0.35); Eosinophils % (A) 0.5 %; HCT 29.7 % (37.2-46.3); HGB 8.8 d/dL (12.0-15.0); Lymphocytes # (A) 0.84 X 10*3/uL (0.90-5.00); Lymphocytes % (A) 14.1 %; MCH 24.8 pg (27.0-32.0); MCHC 29.6 d/dL (32.0-37.0); MCV 83.7 FL (80.0-97.0); Mean Platelet Volume 9.5 FL (9.5-12.2); Monocytes # (A) 0.72 X 10*3/uL (0.20-1.00); Monocytes % (A) 12.1 %; NRBC Per 100 WBC 0 X 10*3/uL (0.00-0.01); Neutrophils # (A) 4.26 X 10*3/uL (1.80-7.70); Neutrophils % (A) 71.8 %; Platelet Count 352 X 10*3/uL (140-440); RBC 3.55 X 10*6/uL (4.10-5.20); RDW 19.4 % (11.5-14.5); WBC 5.94 X 10*3/uL (4.50-10.00)
[2022-12-28 16:05] LABS: Blood Urea Nitrogen 5.3 mg/dL (9.0-27.0); Calcium 8.2 mg/dL (8.7-10.3); Carbon Dioxide 20.1 mmol/L (21.6-31.8); Chloride 104 mmol/L (96-109); Glucose 93 mg/dL (70-110); Potassium 3.6 mmol/L (3.5-5.5); Sodium 138 mmol/L (135-145)
[2022-12-28] MEDS ORDERED: ALBUTEROL HFA INHALER INHALATION PRN (16:10)
[2022-12-28] MEDS: CHOLECALCIFEROL 125 MCG (5000 IU) TABLET PO SCH (16:23)
[2022-12-28] MEDS: ZINC SULFATE 220 MG CAP PO SCH (16:23)
[2022-12-28] MEDS: ASCORBIC ACID 500 MG TAB PO SCH (16:23)
[2022-12-28] MEDS: METOCLOPRAMIDE 5 MG/ML 2 ML VIAL IVP SCH (17:14)
[2022-12-28] MEDS: HYDROcodone/APAP 7.5-325MG 1 EACH TAB PO PRN (20:15)
[2022-12-28] MEDS: CALCIUM CARBONATE 500 MG CHEWABLE PO PRN (20:15)
[2022-12-28 20:27] VITALS: RESP 18
[2022-12-29] MEDS: SODIUM CHLORIDE 0.9% 1,000 ML IV SCH (00:35)
[2022-12-29] MEDS: METOCLOPRAMIDE 5 MG/ML 2 ML VIAL IVP SCH ×3 (00:35→11:46)
[2022-12-29] MEDS: PANTOPRAZOLE 40 MG TABLET PO SCH (06:32)
[2022-12-29 09:31] VITALS: BP 122/79; PULSE 107; TEMP 98.4
[2022-12-29] MEDS: ZINC SULFATE 220 MG CAP PO SCH (11:41)
[2022-12-29] MEDS: CHOLECALCIFEROL 125 MCG (5000 IU) TABLET PO SCH (11:41)
[2022-12-29] MEDS: ASCORBIC ACID 500 MG TAB PO SCH (11:41)
--- NOTE | 2022-12-29 13:01 | P.PN ---
Subjective Progress Note Date: 12/29/22 Principal diagnosis: dehydration, n/v Patient reports she is still experiencing intermittent nausea and is spitting up saliva. Denies nausea at this time. Denies abdominal pain, but increasing abd distention. Repeat paracentesis ordered. Pt found to have COVID yesterday, had exp from family. Continues on IV abx for bacteremia. ID following. Objective - Vital Signs Vital signs: Vital Signs Temp 98.4 F 12/29/22 08:05 Pulse 107 H 12/29/22 08:05 Resp 18 12/29/22 08:05 BP 122/79 12/29/22 08:05 Pulse Ox 99 12/29/22 08:05 FiO2 Intake & Output 12/28/22 12/29/22 12/29/22 18:59 06:59 18:59 Intake Total 900 Balance 900 Weight 72.575 kg Intake: Intake, IV Titration 900 Amount Sodium Chloride 0.9% 1, 900 000 ml @ 75 mls/hr IV . [id number] [facility] Rx#:[id number] Other: # Voids 3 1 # Bowel Movements 0 1 - Constitutional General appearance: Present: average body habitus, no acute distress - EENT Eyes: Present: anicteric sclerae, EOMI ENT: Present: hearing grossly normal - Respiratory Details: breathing even and unlabored - Cardiovascular Details: skin warm and dry - Gastrointestinal General gastrointestinal: Present: distended. Absent: tenderness - Integumentary Integumentary: Absent: cyanotic - Neurologic Neurologic Comment(s): grossly intact - Musculoskeletal Musculoskeletal: Present: generalized weakness - Psychiatric Psychiatric: Present: A&O x's 3, appropriate affect, intact judgment & insight - Labs CBC & Chem 7: 12/28/22 09:02 12/28/22 09:02 Labs: Abnormal Lab Results - Last 24 Hours (Table) 12/28/22 12/28/22 12/28/22 Range/Units 09:02 09:02 13:14 RBC 3.55 L (4.10-5.20) X 10*6/uL Hgb 8.8 L (12.0-15.0) d/dL Hct 29.7 L (37.2-46.3) % MCH 24.8 L (27.0-32.0) pg MCHC 29.6 L (32.0-37.0) d/dL RDW 19.4 H (11.5-14.5) % Lymphocytes # 0.84 L (0.90-5.00) X 10*3/uL Eosinophils # 0.03 L (0.04-0.35) X 10*3/uL Carbon Dioxide 20.1 L (21.6-31.8) mmol/L Anion Gap 13.90 H (4.00-12.00) mmol/L BUN 5.3 L (9.0-27.0) mg/dL Creatinine 0.5 L (0.6-1.5) mg/dL BUN/Creatinine Ratio 10.60 L (12.00-20.00) Ratio Calcium 8.2 L (8.7-10.3) mg/dL Coronavirus (PCR) Detected A (Not Detectd) Microbiology - Last 24 Hours (Table) 12/25/22 14:13 Blood Culture - Preliminary Blood Assessment and Plan (1) Altered mental status Current Visit: Yes Status: Acute Priority: High Code(s): R41.82 - ALTERED MENTAL STATUS, UNSPECIFIED SNOMED Code(s): 673957361 (2) Ascites Current Visit: Yes Status: Acute Priority: High Code(s): R18.8 - OTHER ASCITES SNOMED Code(s): 406305447 (3) Dehydration Current Visit: Yes Status: Acute Priority: High Code(s): E86.0 - DEHYDRATION SNOMED Code(s): 57670953 (4) COVID-19 Current Visit: Yes Status: Acute Priority: High Code(s): U07.1 - COVID-19 SNOMED Code(s): 988108692 Plan: Altered mental status: -The patient has been having multiple progressive symptoms. She was supposed to follow-up with Dr Tomlinson in the office, but the current hospital visit was facilitated by the change in mental status. Her family member stated that they were concerned that she was developing a UTI. -Mentation improved to baseline since admission. -Patient's x-rays showed possibility of a small pneumonia in the left lower lo be. UA suspicious for UTI, culture positive for mirian albicans -Blood culture positive for E. coli, continues on rocephin with plans for ceftin upon d/c. Fluid culture from para negative. Repeat blood cultures negative thus far. ID following - Monitor with ongoing hydration and treatment for infection Dehydration: -Intake has been significantly diminished, and has not improved since stopping chemotherapy. Could be due to persistent chemotherapy effect, but is more likely due to recurrent ascites and diminished bowel function. Abdominal x-ray revealed nonspecific abdomen without evidence of free air or obstruction -Patient reports improvement in symptoms of nausea/vomiting and is reporting oral intake but is still somewhat decreased. -Continue IV hydration and encourage anti-emetics as needed -Encouraged increasing oral intake as tolerated Recurrent Ascites: -Likely contributing to her symptoms. -Abdominal ultrasound revealed loculated ascites within all 4 abdominal quadrants. -S/p paracentesis on 12/22, 1.5L removed. Reported improvement in symptoms, however abd distention is increasing. IR consult placed for repeat para. -Cytology was positive for metastatic adenocarcinoma consistent with ovarian cancer primary. Results discussed with patient -Standing paracentesis order has been placed, pt will f/u with IR upon discharge Plan: Treatment for ovarian cancer is currently on hold due to progressive side effects from the prior regimen. At her last f/u pt had decided not to pursue active treatment, and is currently following up for observation and management of symptoms. Follow-up with Dr. Tomlinson in discharge plan. Pt updated on plan of care
--- NOTE | 2022-12-29 15:02 | P.PN ---
Subjective Progress Note Date: 12/28/22 Principal diagnosis: E. coli bacteremia Patient is a 67-year-old female with a past medical history significant for ovarian cancer with recurrence on chemo with a right chest wall Mediport last chemo about 3 weeks before presentation to the hospital with weakness nausea and vomiting patient did have evidence of E. coli bacteremia. Patient is status post paracentesis completed on 12/22/2022 On today's evaluation that is 12/28/2022, the patient denies any fever or any chills, the patient is breathing comfortably on room air and no need for supplemental oxygen, patient denies abdominal pain and no nausea/vomiting /diarrhea,the patient denies chest pain or cough, no new symptoms Patient white count is 5.94, creatinine 0.5, blood cultures with an E. coli urine cultures with the Agustina, paracentesis fluid cultures negative Objective - Vital Signs Vital signs: Vital Signs Temp 98.0 F 12/28/22 07:14 Pulse 109 H 12/28/22 08:05 Resp 16 12/28/22 07:14 BP 120/81 12/28/22 07:14 Pulse Ox 97 12/28/22 07:14 FiO2 Intake & Output 12/27/22 12/28/22 12/28/22 18:59 06:59 18:59 Output Total 2 Balance -2 Output: Emesis 2 Other: Voiding Method Toilet Toilet # Voids 2 2 # Bowel Movements 1 - Exam GENERAL DESCRIPTION: An elderly female lying in bed in no distress RESPIRATORY SYSTEM: Unlabored breathing , decreased breath sounds at bases HEART: S1 S2 regular rate and rhythm , ABDOMEN: Soft , mild epigastric tenderness EXTREMITIES: No edema feet - Labs CBC & Chem 7: 12/28/22 09:02 12/28/22 09:02 Labs: Microbiology - Last 24 Hours (Table) 12/25/22 14:13 Blood Culture - Preliminary Blood Assessment and Plan (1) E coli bacteremia Current Visit: Yes Status: Acute Code(s): R78.81 - BACTEREMIA; B96.20 - UNSP ESCHERICHIA COLI THE CAUSE OF DISEASES CLASSD [facility] SNOMED Code(s): 172616526540 Plan: 1patient presented to hospital with weakness and mental status changes which is likely multifactorial in this patient with ovarian cancer on chemotherapy now with evidence of E. coli bacteremia source likely abdominal as there was evidence of a large ascites and some loculated fluid status post CT-guided drainage cultures are negative 2-patient has shown clinical improvement, the patient white count is normalized 3- patient will continue with Rocephin 2 g daily and plan to finish therapy with oral Ceftin on discharge Dictation was produced using [employer] dictation software. please excuse any grammatical, word or spelling errors. Time with Patient: Less than 30
--- NOTE | 2022-12-29 15:05 | P.PN ---
Subjective Progress Note Date: 12/29/22 Principal diagnosis: E. coli bacteremia Patient is a 67-year-old female with a past medical history significant for ovarian cancer with recurrence on chemo with a right chest wall Mediport last chemo about 3 weeks before presentation to the hospital with weakness nausea and vomiting patient did have evidence of E. coli bacteremia. Patient is status post paracentesis completed on 12/22/2022 On today's evaluation that is 12/29/2022, the patient remains to be afebrile the patient is breathing comfortably on room air, the patient denies having any chest pain shortness of breath or cough, patient denies abdominal pain, no further vomiting or diarrhea, Patient white count is 5.94, creatinine 0.5 as of yesterday no lab draws today , blood cultures with an E. coli urine cultures with the Agustina, paracentesis fluid cultures negative Objective - Vital Signs Vital signs: Vital Signs Temp 98.4 F 12/29/22 08:05 Pulse 107 H 12/29/22 08:05 Resp 18 12/29/22 08:05 BP 122/79 12/29/22 08:05 Pulse Ox 99 12/29/22 08:05 FiO2 Intake & Output 12/28/22 12/29/22 12/29/22 18:59 06:59 18:59 Intake Total 900 Balance 900 Weight 72.575 kg Intake: Intake, IV Titration 900 Amount Sodium Chloride 0.9% 1, 900 000 ml @ 75 mls/hr IV . [id number] [facility] Rx#:[id number] Other: # Voids 3 1 # Bowel Movements 0 1 - Exam GENERAL DESCRIPTION: An elderly female lying in bed in no distress RESPIRATORY SYSTEM: Unlabored breathing , decreased breath sounds at bases HEART: S1 S2 regular rate and rhythm , ABDOMEN: Soft , mild epigastric tenderness EXTREMITIES: No edema feet - Labs CBC & Chem 7: 12/28/22 09:02 12/28/22 09:02 Labs: Abnormal Lab Results - Last 24 Hours (Table) 12/28/22 12/28/22 12/28/22 Range/Units 09:02 09:02 13:14 RBC 3.55 L (4.10-5.20) X 10*6/uL Hgb 8.8 L (12.0-15.0) d/dL Hct 29.7 L (37.2-46.3) % MCH 24.8 L (27.0-32.0) pg MCHC 29.6 L (32.0-37.0) d/dL RDW 19.4 H (11.5-14.5) % Lymphocytes # 0.84 L (0.90-5.00) X 10*3/uL Eosinophils # 0.03 L (0.04-0.35) X 10*3/uL Carbon Dioxide 20.1 L (21.6-31.8) mmol/L Anion Gap 13.90 H (4.00-12.00) mmol/L BUN 5.3 L (9.0-27.0) mg/dL Creatinine 0.5 L (0.6-1.5) mg/dL BUN/Creatinine Ratio 10.60 L (12.00-20.00) Ratio Calcium 8.2 L (8.7-10.3) mg/dL Coronavirus (PCR) Detected A (Not Detectd) Microbiology - Last 24 Hours (Table) 12/25/22 14:13 Blood Culture - Preliminary Blood Assessment and Plan (1) E coli bacteremia Current Visit: Yes Status: Acute Code(s): R78.81 - BACTEREMIA; B96.20 - UNSP ESCHERICHIA COLI THE CAUSE OF DISEASES CLASSD [facility] SNOMED Code(s): 501 [id number] Plan: 1patient presented to hospital with weakness and mental status changes which is likely multifactorial in this patient with ovarian cancer on chemotherapy now with evidence of E. coli bacteremia source likely abdominal as there was evidence of a large ascites and some loculated fluid status post CT-guided drainage cultures are negative 2-patient has shown clinical improvement, the patient white count is normalized , repeat ultrasound for discussion with radiologist is mostly her tumor rather than fluid 3- patient will continue with Rocephin 2 g daily while inpatient and plan to finish therapy with oral Ceftin x 7 days on discharge Dictation was produced using [employer] dictation software. please excuse any grammatical, word or spelling errors. Time with Patient: Less than 30
== END 2022-12-29 16:14 | disposition home or self-care (01) | DRG 871 ==
LOC: EC 00:02 → 3SCARD 04:01 → 4SSUR 12-21 10:44
PROVIDERS: ADMIT Hospitalist; ATTEND Hospitalist
PROC: 0W9G3ZZ Drainage of Peritoneal Cavity, Percutaneous Approach (ICD-10-PCS; principal; 2022-12-22)
DX: A41.51 Sepsis due to Escherichia coli [E. coli] (principal); G93.41 Metabolic encephalopathy; J15.9 Unspecified bacterial pneumonia; U07.1 COVID-19; N17.9 Acute kidney failure, unspecified; E87.20 Acidosis, unspecified; B37.49 Other urogenital candidiasis; I50.9 Heart failure, unspecified; I11.0 Hypertensive heart disease with heart failure; R18.8 Other ascites; C79.9 Secondary malignant neoplasm of unspecified site; E87.1 Hypo-osmolality and hyponatremia; E86.0 Dehydration; K59.00 Constipation, unspecified; R11.2 Nausea with vomiting, unspecified; G58.9 Mononeuropathy, unspecified; F17.210 Nicotine dependence, cigarettes, uncomplicated; Z90.711 Acquired absence of uterus with remaining cervical stump; Z85.43 Personal history of malignant neoplasm of ovary
CPT/HCPCS: 36415; 49083; 71045; 71046; 71275; 74019; 74177; 76705; 80048; 80053; 80306; 81001; 82533; 82945; 83605; 83735; 84132; 84157; 84443; 84484; 85025; 85027; 85379; 85610; 85730; 87040; 87070; 87075; 87077; 87086; 87186; 87205; 87449; 87635; 88108; 88305; 88341; 88342; 89050; 93005; 93970; 96361; 96365; 96366; 96372; 96375; 99285

== ENCOUNTER 2023-01-11 12:21 | Day surgery (SDC) | payer MEDICARE, OTHER ==
[2023-01-11 13:10] LABS: Mean Platelet Volume 8.4; Platelet Count 515 k/uL (150-450)
[2023-01-11 13:20] LABS: Prothrombin Time 10.9 sec (10.0-12.5)
[2023-01-11 14:01] VITALS: TEMP 98.4
[2023-01-11 14:21] VITALS: RESP 16
[2023-01-11 15:00] VITALS: BP 102/67; PULSE 112
--- NOTE | 2023-01-11 15:41 | US ---
EXAMINATION TYPE: US paracentesis abd w/image DATE OF EXAM: 01/11/2023 1:59 PM CLINICAL INDICATION:Female, 67 years old with history of R18.8 OTHER ascites; COMPARISON: 01/07/2023 ATTENDING: Dr. Bear Castanon PROCEDURE: Informed consent was obtained. The risks of the procedure were extensively explained incl uding risk of damage to surrounding bowel with perforation and need for additional procedures. Proced ure was performed in the ultrasound procedure suite. Ultrasound imaging of the abdomen demonstrate as citic fluid. An appropriate access site was localized to the right lower abdomen. Timeout was taken p er protocol. The skin was prepped and draped in the usual sterile fashion and then locally anesthetiz ed with 1% lidocaine. The peritoneal cavity was then accessed via a 5-Italian one-step needle/cathete r. Approximately 3000 cc of clear straw-colored fluid was obtained. Postprocedural imaging of the a bdomen demonstrate a minimal amount of abdominal fluid. Patient tolerated procedure well without immediate complication. Hemostasis at the procedural site w as obtained with a sterile bandage placed. The patient was monitored in the holding area following th e procedure and was subsequently discharged in stable condition. IMPRESSION: Ultrasound guided paracentesis, with approximately 3000 cc of clear straw-colored fluid drained. No immediate complications were evident.
== END 2023-01-11 15:30 | disposition home or self-care (01) ==
LOC: RADPROMAIN 12:21
PROVIDERS: ATTEND Internal Medicine Hematology & Oncology
DX: R18.8 Other ascites (principal)
CPT/HCPCS: 85049; 85610; 49083; J1642